=== PATIENT | female | born 1935 | race Caucasian/White ===

== ENCOUNTER 2017-08-24 12:45 | Emergency (ER) | payer MEDICARE, OTHER ==
[2017-08-24] MEDS ORDERED: ACETAMINOPHEN 325 MG TABLET PO ONE (13:36)
--- NOTE | 2017-08-24 13:46 | ER Document Report ---
ED General - General Chief Complaint: Fall Stated Complaint: FALL/HEAD INJURY, ANKLE PAIN Time Seen by Provider: 08/24/17 13:36 Mode of Arrival: Wheelchair Information source: Patient Notes: 81-year-old female history of dementia presents after twofold in 2 days. Family notes she twisted her ankle on the fall yesterday and they believe she twisted her ankle again today. Patient is on aspirin has history of osteoporosis and did strike her head yesterday. Family notes she is acting appropriately and was taken to primary care physician who evaluated her and did not believe patient had a bleed. Patient today had another fall was found laying on her back complaining of low back pain this time. No LOC noted. Family notes patient is acting appropriately again. She did not denies any chest pain shortness of breath abdominal pain or any other concerns TRAVEL OUTSIDE OF THE [place] IN LAST 30 DAYS: No - HPI Onset: Just prior to arrival Onset/Duration: Sudden Quality of pain: Achy Severity: Mild Pain Level: 1 Associated symptoms: Body/muscle aches Exacerbated by: Denies Relieved by: Denies Similar symptoms previously: Yes Recently seen / treated by doctor: Yes - Related Data Allergies/Adverse Reactions: TOBIN Inhibitors Allergy (Verified 08/24/17 12:47) Past Medical History - Social History Smoking Status: Never Smoker Cigarette use (# per day): No Chew tobacco use (# tins/day): No Smoking Education Provided: No Frequency of alcohol use: None Drug Abuse: None Family History: Reviewed & Not Pertinent Patient has suicidal ideation: No Patient has homicidal ideation: No - Past Medical History Cardiac Medical History: Reports: Hx Hypercholesterolemia, Hx Hypertension - not medicated Endocrine Medical History: Reports: Hx Diabetes Mellitus Type 2 Renal/ Medical History: Denies: Hx Peritoneal Dialysis Musculoskeltal Medical History: Reports Hx Arthritis - osteo Psychiatric Medical History: Reports: Hx Dementia Past Surgical History: Reports: Hx Cholecystectomy Review of Systems - Review of Systems Notes: REVIEW OF SYSTEMS: CONSTITUTIONAL : Denies fever, chills, or sweats. Denies recent illness. EENT: Denies eye, ear, throat, or mouth pain or symptoms. Denies nasal or sinus congestion or discharge. Denies throat, tongue, or mouth swelling or difficulty swallowing. Ms. dumont had CARDIOVASCULAR: Denies chest pain. Denies palpitations or racing or irregular heart beat. Denies ankle edema. RESPIRATORY: Denies cough, cold, or chest congestion. Denies shortness of breath, difficulty breathing, or wheezing. GASTROINTESTINAL: Denies abdominal pain or distention. Denies nausea, vomiting , or diarrhea. Denies blood in vomitus, stools, or per rectum. Denies black, tarry stools. Denies constipation. GENITOURINARY: Denies difficulty urinating, painful urination, burning, frequency, blood in urine, or discharge. FEMALE GENITOURINARY: Denies vaginal bleeding, heavy or abnormal periods, irregular periods. Denies vaginal discharge or odor. MUSCULOSKELETAL: Admits low back pain right ankle pain SKIN: Denies rash, lesions or sores. HEMATOLOGIC : Denies easy bruising or bleeding. LYMPHATIC: Denies swollen, enlarged glands. NEUROLOGICAL: Denies confusion or altered mental status. Denies passing out or loss of consciousness. Denies dizziness or lightheadedness. Denies headache. Denies weakness or paralysis or loss of use of either side. Denies problems with gait or speech. Denies sensory loss, numbness, or tingling. Denies seizures. PSYCHIATRIC: Denies anxiety or stress. Denies depression, suicidal ideation, or homicidal ideation. ALL OTHER SYSTEMS REVIEWED AND NEGATIVE. PHYSICAL EXAMINATION: GENERAL: Well-appearing, well-nourished and in no acute distress. HEAD: Atraumatic, normocephalic. EYES: Pupils equal round and reactive to light, extraocular movements intact, conjunctiva are normal. ENT: Nares patent, oropharynx clear without exudates. Moist mucous membranes. NECK: Normal range of motion, supple without lymphadenopathy LUNGS: Breath sounds clear to auscultation bilaterally and equal. No wheezes rales or rhonchi. HEART: Regular rate and rhythm without murmurs ABDOMEN: Soft, nontender, nondistended abdomen. No guarding, no rebound. No masses appreciated. Female : deferred Musculoskeletal: Normal range of motion, no pitting or edema. No cyanosis. Although ankle swelling on the right NEUROLOGICAL: Cranial nerves grossly intact. Normal speech, normal gait. Normal sensory, motor exams PSYCH: Normal mood, normal affect. SKIN: Warm, Dry, normal turgor, no rashes or lesions noted. Dictation was performed using [employer] voice recognition software Physical Exam - Vital signs Vitals: Temp Pulse Resp BP Pulse Ox 98.5 F 71 16 121/93 H 96 08/24/17 12:53 08/24/17 12:53 08/24/17 12:53 08/24/17 12:53 08/24/17 12:53 Course - Re-evaluation Re-evalutation: 08/24/17 14:05 Patient overall is acting appropriately and responding to questions, I do not believe she had a syncopal episode given the 2 presentations, I will order imaging as she otherwise looks well. 08/24/17 19:41 X-ray noted mild effusion of the ankle otherwise no acute fractures noted. Patient was washed in the emergency department had no other symptoms, I discussed with them a mechanical fall versus a syncopal episode, they are insistent that this is mechanical nature. Therefore I will discharge the patient home with close follow-up After performing a Medical Screening Examination, I estimate there is LOW risk for INTRACRANIAL HEMORRHAGE, UNSTABLE SPINE FRACTURE, CENTRAL CORD SYNDROME, CAUDA EQUINA, THORACIC AORTIC DISSECTION, PNEUMOTHORAX, PERFORATED BOWEL, RUPTURED ABDOMINAL AORTIC ANEURYSM, ACUTE TENDON RUPTURE, COMPARTMENT SYNDROME, or OPEN FRACTURE, thus I consider the discharge disposition reasonable. Also, there is no evidence or peritonitis, sepsis, or toxicity. I have reevaluated this patient multiple times and no significant life threatening changes are noted. The patient and I have discussed the diagnosis and risks, and we agree with discharging home to follow-up with their primary doctor with the understanding that symptoms and presentations can change. We also discussed returning to the Emergency Department immediately if new or worsening symptoms occur. We have discussed the symptoms which are most concerning (e.g., bloody stool, fever, changing or worsening pain, vomiting) that necessitate immediate return. - Vital Signs Vital signs: Temp Pulse Resp BP Pulse Ox 98.9 F 60 16 140/70 H 96 08/24/17 15:52 08/24/17 15:52 08/24/17 15:52 08/24/17 15:52 08/24/17 15:52 - Diagnostic Test Radiology reviewed: Image reviewed, Reports reviewed - Report given Discharge - Discharge Clinical Impression: Fall Qualifiers: Encounter type: initial encounter Qualified Code(s): W19.XXXA - Unspecified fall, initial encounter Ankle injury Qualifiers: Encounter type: initial encounter Laterality: right Qualified Code(s): S99.911A - Unspecified injury of right ankle, initial encounter Condition: Stable Disposition: HOME, SELF-CARE Instructions: Head Injury Precautions ([facility]), Sprained Ankle ([facility]) Additional Instructions: Follow up with your physician tomorrow for further care or return to the ED IMMEDIATELY if symptoms worsen or new concerns occur. If you cannot afford to follow up with your primary care physician a list of low cost clinics have been provided at the end of your discharge papers as well.
--- NOTE | 2017-08-24 15:15 | RADIOLOGY REPORT (SQ) ---
EXAM DESCRIPTION: CT HEAD WITHOUT COMPLETED DATE/TIME: 08/24/2017 3:04 pm REASON FOR STUDY: fall COMPARISON: April 2016 TECHNIQUE: Axial images acquired through the brain without intravenous contrast. Images reviewed wi th bone, brain and subdural windows. Images stored on PACS. All CT scanners at this facility use dose modulation, iterative reconstruction, and/or weight based d osing when appropriate to reduce radiation dose to as low as reasonably achievable (ALARA). [facility]: Dose Right [facility]: CareDose [facility]: Dose Right [facility]: Teradose 4D [facility]: [employer] RADIATION DOSE: CT Rad equipment meets quality standard of care and radiation dose reduction techniq ues were employed. CTDIvol: 64.6 mGy. DLP: 1163 mGy-cm. mGy. LIMITATIONS: None. FINDINGS: VENTRICLES: Prominent. CEREBRUM: No masses. No hemorrhage. No midline shift. Areas of low density in the white matter mos t likely due to chronic micro-vascular ischemic change. No evidence for acute infarction. CEREBELLUM: No masses. No hemorrhage. No alteration of density. No evidence for acute infarction. EXTRAAXIAL SPACES: Mild age-related involutional change. No fluid collections. No masses. ORBITS AND GLOBE: No intra- or extraconal masses. Normal contour of globe without masses. CALVARIUM: No fracture. PARANASAL SINUSES: No fluid or mucosal thickening. SOFT TISSUES: No mass or hematoma. OTHER: No other significant finding. IMPRESSION: MILD CHRONIC CHANGES OF ATROPHY AND MICROVASCULAR ISCHEMIA. NO ACUTE PROCESS. EVIDENCE OF ACUTE STROKE: NO. TECHNICAL DOCUMENTATION: JOB ID: [id number] Quality ID # [id number]: Final reports with documentation of one or more dose reduction techniques (e.g., Au tomated exposure control, adjustment of the mA and/or kV according to patient size, use of iterative reconstruction technique) 2010 [employer]- All Rights Reserved
--- NOTE | 2017-08-24 15:17 | RADIOLOGY REPORT (SQ) ---
EXAM DESCRIPTION: ANKLE RIGHT COMPLETE COMPLETED DATE/TIME: 08/24/2017 3:07 pm REASON FOR STUDY: fall COMPARISON: None. NUMBER OF VIEWS: Three views. TECHNIQUE: AP, lateral, and oblique radiographic images acquired of the right ankle. LIMITATIONS: None. FINDINGS: MINERALIZATION: Osteoporotic BONES: No acute displaced fracture. Mild plantar calcaneal bony spurring, mild bony spurring at the distal tip of the medial and lateral malleoli JOINTS: Small ankle joint effusion SOFT TISSUES: No soft tissue swelling. No foreign body. OTHER: No other significant finding. IMPRESSION: No acute fracture identified. Small ankle joint effusion TECHNICAL DOCUMENTATION: JOB ID: [id number] [employer]- All Rights Reserved
--- NOTE | 2017-08-24 15:20 | RADIOLOGY REPORT (SQ) ---
EXAM DESCRIPTION: CT CERVICAL SPINE WITHOUT COMPLETED DATE/TIME: 08/24/2017 3:04 pm REASON FOR STUDY: fall COMPARISON: None. TECHNIQUE: Axial images acquired through the cervical spine without intravenous contrast. Images re viewed with lung, soft tissue and bone windows. Reconstructed coronal and sagittal MPR images review ed. Images stored on PACS. All CT scanners at this facility use dose modulation, iterative reconstruction, and/or weight based d osing when appropriate to reduce radiation dose to as low as reasonably achievable (ALARA). [facility]: Dose Right [facility]: CareDose [facility]: Dose Right [facility]: Teradose 4D [facility]: [email or web address] RADIATION DOSE: CT Rad equipment meets quality standard of care and radiation dose reduction techniq ues were employed. CTDIvol: 11.7 mGy. DLP: 222 mGy-cm. mGy. LIMITATIONS: None. FINDINGS: ALIGNMENT: There is some loss of the normal cervical lordosis. There is minimal anterolis thesis of C 4 in relation to C5 MINERALIZATION: Normal. VERTEBRAL BODIES: No fractures or dislocation. DISCS: Multilevel disc space narrowing with osteophytes. FACETS, LATERAL MASSES, POSTERIOR ELEMENTS: Facet arthropathy. No fractures. No dislocation. No ac [place] findings. HARDWARE: None in the spine. VISUALIZED RIBS: No fractures. LUNG APICES AND SOFT TISSUES: No significant or acute findings. OTHER: No other significant finding. IMPRESSION: CHRONIC DEGENERATIVE CHANGES. NO ACUTE FINDINGS. TECHNICAL DOCUMENTATION: JOB ID: [id number] Quality ID # [id number]: Final reports with documentation of one or more dose reduction techniques (e.g., Au tomated exposure control, adjustment of the mA and/or kV according to patient size, use of iterative reconstruction technique) 2010 [employer]- All Rights Reserved
--- NOTE | 2017-08-24 15:25 | RADIOLOGY REPORT (SQ) ---
EXAM DESCRIPTION: CT LUMBAR SPINE WITHOUT COMPLETED DATE/TIME: 08/24/2017 3:04 pm REASON FOR STUDY: fall COMPARISON: None. TECHNIQUE: Axial images acquired through the lumbar spine without intravenous contrast. Images revie wed with lung, soft tissue and bone windows. Reconstructed coronal and sagittal MPR images reviewed. Images stored on PACS. All CT scanners at this facility use dose modulation, iterative reconstruction, and/or weight based d osing when appropriate to reduce radiation dose to as low as reasonably achievable (ALARA). [facility]: Dose Right [facility]: CareDose [facility]: Dose Right [facility]: Teradose 4D [facility]: [employer] RADIATION DOSE: mGy. LIMITATIONS: None. FINDINGS: SOFT TISSUES: No soft tissue swelling. No masses. SEGMENTATION: Normal. No transitional anatomy. ALIGNMENT: There is grade 1 anterolisthesis of L5 in relation to S1 and minimal anterolisthesis of L 3 in relation L4. There is a mild lumbar scoliosis convex to the right. VERTEBRAL BODIES: No fractures. No dislocation. No acute findings. DISCS: There is multilevel disc space reduction with associated osteophytic lipping PEDICLES, TRANSVERSE PROCESSES: No fractures. No dislocation. No acute findings. FACETS, POSTERIOR ELEMENTS: No fractures. No dislocation. Degenerative changes are identified in th e facet articulations at multiple levels HARDWARE: None in the spine. VISUALIZED RIBS: No fractures. OTHER: No other significant finding. IMPRESSION: DEGENERATIVE CHANGES IN THE LUMBAR SPINE WITHOUT ACUTE FRACTURE OR DISLOCATION. TECHNICAL DOCUMENTATION: JOB ID: [id number] Quality ID # [id number]: Final reports with documentation of one or more dose reduction techniques (e.g., Au tomated exposure control, adjustment of the mA and/or kV according to patient size, use of iterative reconstruction technique) 2010 [employer]- All Rights Reserved
[2017-08-24 15:54] VITALS: BP 140/70
== END 2017-08-24 15:54 | disposition home or self-care (01) ==
LOC: ER 12:45
DX: S99.911A Unspecified injury of right ankle, initial encounter (principal); S09.90XA Unspecified injury of head, initial encounter; M79.1 Myalgia; W18.30XA Fall on same level, unspecified, initial encounter; E78.00 Pure hypercholesterolemia, unspecified; I10 Essential (primary) hypertension; E11.9 Type 2 diabetes mellitus without complications; F03.90 Unspecified dementia, unspecified severity, without behavioral disturbance, psychotic disturbance, mood disturbance, and anxiety; Z90.49 Acquired absence of other specified parts of digestive tract
CPT/HCPCS: 99284; 73610; 70450; 72125; 72131; A9270

== ENCOUNTER 2017-11-25 12:47 | Observation (INO) | payer MEDICARE, OTHER ==
--- NOTE | 2017-11-25 13:10 | ER Document Report ---
ED General - General Chief Complaint: Syncope Stated Complaint: SYNCOPE Time Seen by Provider: 11/25/17 13:10 Notes: 82-year-old female patient to the emergency department after having a near syncopal episode at home. Patient had a large loose diarrhea-like stool. Family members state that they were helping her get cleaned up. They had her in the bathtub cleaning her. When she went to get out of the bathtub she was very weak. Daughter had to hold her up and she almost passed out. Did not fall or hit her head. Was very cool and clammy and at that time was also complaining of pain in her left arm and left side of her chest. No prior history of heart problems. Prediabetes as well as hypertension. EMS was called. When EMS got there her blood pressure was low. IV was established. Patient is with severe dementia as well TRAVEL OUTSIDE OF THE [place] IN LAST 30 DAYS: No - HPI Onset: Just prior to arrival Onset/Duration: Sudden - Related Data Allergies/Adverse Reactions: TOBIN Inhibitors Allergy (Verified 08/24/17 12:47) Past Medical History - General Information source: Relative - Social History Smoking Status: Never Smoker Chew tobacco use (# tins/day): No Frequency of alcohol use: None Drug Abuse: None Lives with: Family Family History: Reviewed & Not Pertinent Patient has suicidal ideation: No Patient has homicidal ideation: No - Past Medical History Cardiac Medical History: Reports: Hx Hypercholesterolemia, Hx Hypertension - not medicated Endocrine Medical History: Reports: Hx Diabetes Mellitus Type 2 Renal/ Medical History: Denies: Hx Peritoneal Dialysis Musculoskeltal Medical History: Reports Hx Arthritis - osteo Psychiatric Medical History: Reports: Hx Dementia Past Surgical History: Reports: Hx Cholecystectomy Review of Systems - Review of Systems Constitutional: Weakness. denies: Fever, Malaise EENT: denies: Eye pain, Difficulty swallowing, Mouth pain, Mouth swelling Cardiovascular: Chest pain, Syncope, Dizziness, Lightheaded. denies: Palpitations, Heart racing, Orthopnea Respiratory: denies: Cough, Hurts to breathe, Short of breath, Wheezing Gastrointestinal: Diarrhea, Nausea. denies: Abdominal pain, Vomiting Genitourinary: denies: Dysuria, Flank pain, Urgency Musculoskeletal: denies: Back pain, Joint pain, Joint swelling, Muscle pain, Leg swelling Skin: denies: Lesions, Lumps, Rash Hematologic/Lymphatic: denies: Blood clots, Easy bleeding, Easy bruising Neurological/Psychological: Confusion, Dementia, Weakness. denies: Depression, Paralysis, Numbness Physical Exam - Vital signs Vitals: Resp 17 11/25/17 12:58 Interpretation: Normal - General General appearance: Appears well, Alert - HEENT Head: Normocephalic, Atraumatic Eyes: Normal Pupils: PERRL - Respiratory Respiratory status: No respiratory distress Chest status: Nontender Breath sounds: Normal Chest palpation: Normal - Cardiovascular Rhythm: Regular Heart sounds: Normal auscultation Murmur: No - Abdominal Inspection: Normal Distension: No distension Bowel sounds: Normal Tenderness: Nontender Organomegaly: No organomegaly - Back Back: Normal, Nontender - Extremities General upper extremity: Normal inspection, Nontender, Normal color, Normal ROM , Normal temperature General lower extremity: Normal inspection, Nontender, Normal color, Normal ROM , Normal temperature, Normal weight bearing. No: Johanne's sign - Neurological Neuro grossly intact: Yes Cognition: Short term memory loss Sterling Coma Scale Eye Opening: Spontaneous Sterling Coma Scale Motor: Obeys Commands Speech: Normal Motor strength normal: LUE, RUE, LLE, RLE Sensory: Normal - Psychological Associated symptoms: Normal affect, Normal mood - Skin Skin Temperature: Warm Skin Moisture: Dry Skin Color: Normal Course - Re-evaluation Re-evalutation: 11/25/17 15:14 EKG and basic labs fairly unremarkable. Patient had a syncopal episode prior to arrival with slightly low blood pressure according to EMS. Blood pressure was 110/70 at the time of initial evaluation. I would like to have her admitted at least for observation due to the fact she had a syncopal episode and reportedly had some chest pain and left arm pain at this time. Will consult with hospitalist for admission at this time. - Vital Signs Vital signs: Temp Pulse Resp BP Pulse Ox 98.4 F 63 15 131/61 H 96 11/25/17 12:59 11/25/17 13:45 11/25/17 14:01 11/25/17 14:01 11/25/17 14:01 - Laboratory Result Diagrams: 11/25/17 13:46 11/25/17 13:46 Laboratory results interpreted by me: 11/25/17 11/25/17 11/25/17 13:46 13:46 14:22 WBC 13.5 H Hgb 10.3 L Hct 33.0 L MCV 75 L MCH 23.6 L MCHC 31.3 L RDW 18.9 H Seg Neutrophils % 87.6 H Lymphocytes % 6.1 L Absolute Neutrophils 11.8 H Chloride 109 H Creatine Kinase 28 L Total Protein 5.9 L Albumin 3.4 L Urine Protein 30 H - EKG Interpretation by Pa EKG shows normal: Sinus rhythm, [place], Intervals, QRS Complexes, ST-T Waves Discharge - Discharge Clinical Impression: Syncope and collapse Disposition: ADMITTED OBSERVATION Admitting Provider: Hospitalist [facility] Admitted: Telemetry
[2017-11-25 13:59] LABS: ABSOLUTE BASOPHILS # (AUTO) 0.1 10^3/uL (0.0-0.2); ABSOLUTE EOSINOPHILS # (AUTO) 0.1 10^3/uL (0.0-0.6); ABSOLUTE LYMPHOCYTES (AUTO) 0.8 10^3/uL (0.5-4.7); ABSOLUTE MONOCYTES (AUTO) 0.7 10^3/uL (0.1-1.4); ABSOLUTE NEUT (AUTO) 11.8 10^3/uL (1.7-8.2); BASOPHILS % (AUTO) 0.4 % (0-2); EOSINOPHILS % (AUTO) 0.8 % (0-6); HEMOGLOBIN 10.3 g/dL (12.0-15.5); LYMPHOCYTES % (AUTO) 6.1 % (13-45); MEAN CORPUSCULAR HEMOGLOBIN 23.6 pg (27.0-33.4); MEAN CORPUSCULAR HGB CONC 31.3 g/dL (32.0-36.0); MEAN CORPUSCULAR VOLUME 75 fl (80-97); MONOCYTES % (AUTO) 5.1 % (3-13); PLATELET COUNT 220 10^3/uL (150-450); RED BLOOD COUNT 4.38 10^6/uL (3.72-5.28); RED CELL DISTRIBUTION WIDTH 18.9 % (11.5-14.0); SEGMENTED NEUTROPHILS % (AUTO) 87.6 % (42-78); TOTAL CELLS COUNTED % (AUTO) 100 %; WHITE BLOOD COUNT 13.5 10^3/uL (4.0-10.5)
[2017-11-25 14:09] LABS: ALANINE AMINOTRANSFERASE 39 U/L (9-52); ALBUMIN 3.4 g/dL (3.5-5.0); ALKALINE PHOSPHATASE 80 U/L (38-126); ANION GAP 7 (5-19); ASPARTATE AMINO TRANSFERASE 23 U/L (14-36); BILIRUBIN,DIRECT 0.1 mg/dL (0.0-0.4); BILIRUBIN,TOTAL 0.2 mg/dL (0.2-1.3); BLOOD UREA NITROGEN 16 mg/dL (7-20); CALCIUM 8.9 mg/dL (8.4-10.2); CARBON DIOXIDE 29 mmol/L (22-30); CHLORIDE 109 mmol/L (98-107); CREATINE KINASE 28 U/L (30-135); GLUCOSE 105 mg/dL (75-110); POTASSIUM 4.3 mmol/L (3.6-5.0); SODIUM 144.7 mmol/L (137-145); TOTAL PROTEIN 5.9 g/dL (6.3-8.2)
[2017-11-25 14:21] LABS: CREATINE KINASE MB 0.54 ng/mL (<4.55); TROPONIN I < 0.012 ng/mL
[2017-11-25 14:37] LABS: AMORPHOUS SEDIMENT,URINE TRACE /HPF; APPEARANCE,URINE CLOUDY; BILIRUBIN,URINE NEGATIVE (NEGATIVE); COLOR,URINE YELLOW; GLUCOSE, URINE NEGATIVE (NEGATIVE); KETONES,URINE NEGATIVE (NEGATIVE); LEUKOCYTE ESTERASE,URINE NEGATIVE (NEGATIVE); NITRITE,URINE NEGATIVE (NEGATIVE); PROTEIN,URINE 30 mg/dL (NEGATIVE); URINE SPECIFIC GRAVITY 1.021; UROBILINOGEN,URINE NEGATIVE mg/dL (<2.0)
--- NOTE | 2017-11-25 15:33 | RADIOLOGY REPORT (SQ) ---
EXAM DESCRIPTION: CHEST SINGLE VIEW COMPLETED DATE/TIME: 11/25/2017 3:22 pm REASON FOR STUDY: syncope COMPARISON: 04/10/2016 EXAM PARAMETERS: NUMBER OF VIEWS: One view. TECHNIQUE: Single frontal radiographic view of the chest acquired. RADIATION DOSE: NA LIMITATIONS: None. FINDINGS: LUNGS AND PLEURA: No opacities, masses or pneumothorax. No pleural effusion. MEDIASTINUM AND HILAR STRUCTURES: No masses. Contour normal. HEART AND VASCULAR STRUCTURES: Heart stable in size. Normal vasculature. BONES: No acute findings. HARDWARE: None in the chest. OTHER: No other significant finding. IMPRESSION: NO ACUTE RADIOGRAPHIC FINDING IN THE CHEST. NO SIGNIFICANT CHANGE FROM PRIOR STUDY. TECHNICAL DOCUMENTATION: JOB ID: [id number] [employer]- All Rights Reserved Reading location - IP/workstation name: [email or web address]
[2017-11-25] MEDS ORDERED: ONDANSETRON HCL INJ/PF 4 MG/2 ML SDV IV PRN (16:00)
--- NOTE | 2017-11-25 16:30 | PDOC H&P ---
History of Present Illness Admission Date/PCP: 11/25/17 15:59 History of Present Illness: SCARLETT CHAUDHARI is a 82 year old female patient with advanced dementia and pituitary adenoma for which she has been on cabergoline for years. Because of her dementia and cognitive impairment brief history is obtained from the ER attending note and from her daughter is in the room During my encounter. Per her daughter patient has been in her usual baseline state of health up until this afternoon when she has large loose bowel movement and soiled herself. Family member states that they were helping her get cleaned up. The had her in the bath tub cleaning her. After cleaning patient has hard time to get out of the bathtub and had her daughter had to hold her up and the patient almost passed out. Patient did not fall or hit her head. Shows a very weak, cool and clammy. She complains of pain her on left scapula. When EMS arrived patient was found to be hypotensive with systolic of 70. Further detailed history and review of systems is unobtainable. Past Medical History Cardiac Medical History: Reports: Hyperlipidema, Hypertension - not medicated Endocrine Medical History: Reports: Diabetes Mellitus Type 2 Musculoskeltal Medical History: Reports: Arthritis - osteo Psychiatric Medical History: Reports: Dementia Past Surgical History Past Surgical History: Reports: Cholecystectomy Social History Lives with: Family Smoking Status: Never Smoker Family History Family History: Reviewed & Not Pertinent, DM Parental Family History Reviewed: Yes Children Family History Reviewed: Yes Sibling(s) Family History Reviewed.: Yes Medication/Allergy Home Medications: Aspirin [Adult Aspirin Regimen] 81 mg PO DAILY 11/25/17 Cabergoline [Cabergoline 0.5 mg Tablet] 1 tab PO Q3DAYS 11/25/17 Calcium Carbonate [Calcium] 600 mg PO DAILY 11/25/17 Losartan Potassium 25 mg PO DAILY 11/25/17 Mecobalamin [B-12] 2,000 mcg PO DAILY 11/25/17 Memantine HCl/Donepezil HCl [Namzaric 28 mg-10 mg Capsule] 1 each PO DAILY 11/25 Metformin HCl 500 mg PO DAILY 11/25/17 Quetiapine Fumarate [Seroquel] 50 mg PO DAILY 11/25/17 Allergies/Adverse Reactions: TOBIN Inhibitors Allergy (Verified 08/24/17 12:47) Review of Systems ROS unobtainable: Due to mental status Physical Exam Vital Signs: Temp Pulse Resp BP Pulse Ox 98.4 F 63 19 107/88 H 97 11/25/17 12:59 11/25/17 13:45 11/25/17 15:01 11/25/17 15:01 11/25/17 15:01 General appearance: PRESENT: no acute distress Head exam: PRESENT: atraumatic, normocephalic Eye exam: PRESENT: conjunctiva pink, EOMI, PERRLA. ABSENT: scleral icterus Respiratory exam: PRESENT: clear to auscultation maren. ABSENT: rales, rhonchi, wheezes Cardiovascular exam: PRESENT: RRR. ABSENT: diastolic murmur, rubs, systolic murmur Neurological exam: PRESENT: alert, awake, other - No neurologic deficit Results Impressions: Chest X-Ray 11/25/17 15:14 IMPRESSION: NO ACUTE RADIOGRAPHIC FINDING IN THE CHEST. NO SIGNIFICANT CHANGE FROM PRIOR STUDY. Assessment & Plan - Diagnosis (1) Near syncope Is this a current diagnosis for this admission?: Yes Plan: Patient will be admitted for observation to rule out TIA or stroke. We will do MRI of the brain next morning (2) Chest pain Qualifiers: Chest pain type: other chest pain Qualified Code(s): R07.89 - Other chest pain; R07.8 - Other chest pain Is this a current diagnosis for this admission?: Yes Plan: Chest pain is typical there is no EKG changes. Her troponins are negative (3) Hypertension Qualifiers: Hypertension type: essential hypertension Qualified Code(s): I10 - Essential (primary) hypertension Is this a current diagnosis for this admission?: Yes (4) Pituitary adenoma Is this a current diagnosis for this admission?: Yes Plan: Continue her home medication. (5) TIA (transient ischemic attack) Is this a current diagnosis for this admission?: Yes Plan: Patient is clinically stable except the near-syncope. Upon examination she does not have any lateralizing signs or neurologic deficits. We will admit the patient for observation. - Time Critical Time spent with patient: 25-34 minutes
[2017-11-25] MEDS ORDERED: LANSOPRAZOLE 30 MG TAB.RAP.DR PO ONE (17:00)
[2017-11-25] MEDS ORDERED: ASPIRIN 325 MG TABLET, ENT COATED PO ONE (17:00)
--- NOTE | 2017-11-25 17:23 | RADIOLOGY REPORT (SQ) ---
EXAM DESCRIPTION: CT HEAD WITHOUT COMPLETED DATE/TIME: 11/25/2017 4:50 pm REASON FOR STUDY: syncpe, hxof adenoma COMPARISON: None. TECHNIQUE: Axial images acquired through the brain without intravenous contrast. Images reviewed wi th bone, brain and subdural windows. Additional sagittal and coronal reconstructions were generated. Images stored on PACS. All CT scanners at this facility use dose modulation, iterative reconstruction, and/or weight based d osing when appropriate to reduce radiation dose to as low as reasonably achievable (ALARA). [facility]: Dose Right [facility]: CareDose [facility]: Dose Right [facility]: Teradose 4D [facility]: [place] RADIATION DOSE: CT Rad equipment meets quality standard of care and radiation dose reduction techniq ues were employed. CTDIvol: 53.2 mGy. DLP: 1044 mGy-cm. mGy. LIMITATIONS: None. FINDINGS: VENTRICLES: Prominent. CEREBRUM: No masses. No hemorrhage. No midline shift. Areas of low density in the white matter mos t likely due to chronic micro-vascular ischemic change. No evidence for acute infarction. CEREBELLUM: No masses. No hemorrhage. No alteration of density. No evidence for acute infarction. EXTRAAXIAL SPACES: Mild age-related involutional change. No fluid collections. No masses. ORBITS AND GLOBE: No intra- or extraconal masses. Normal contour of globe without masses. CALVARIUM: No fracture. PARANASAL SINUSES: No fluid or mucosal thickening. SOFT TISSUES: No mass or hematoma. OTHER: No other significant finding. IMPRESSION: MILD CHRONIC CHANGES OF ATROPHY AND MICROVASCULAR ISCHEMIA. NO ACUTE PROCESS. EVIDENCE OF ACUTE STROKE: NO. TECHNICAL DOCUMENTATION: JOB ID: [id number] Quality ID # [id number]: Final reports with documentation of one or more dose reduction techniques (e.g., Au tomated exposure control, adjustment of the mA and/or kV according to patient size, use of iterative reconstruction technique) 2010 [employer]- All Rights Reserved Reading location - IP/workstation name: [email or web address]
[2017-11-25] MEDS ORDERED: ZOLEDRONIC ACID 5 MG/100 ML BOTTLE IV PRN (18:13)
--- NOTE | 2017-11-25 18:16 | RADIOLOGY REPORT (SQ) ---
EXAM DESCRIPTION: MRI HEAD WITHOUT COMPLETED DATE/TIME: 11/25/2017 6:06 pm REASON FOR STUDY: Rule out stroke COMPARISON: None. TECHNIQUE: Multiplanar imaging includes non-contrasted T1, T2, FLAIR, and diffusion with ADC map seq uences. Images stored on PACS. LIMITATIONS: At least some degree of motion artifact on many of the sequences. FINDINGS: ANATOMY: No anomalies. Normal vascular flow voids. Pituitary fossa normal. CSF SPACES: Atrophy induced prominence of ventricles and CSF spaces. CEREBRUM: High signal intensity lesions scattered throughout the white matter on FLAIR imaging with d istribution suggesting micro-vascular ischemic changes. No evidence of hemorrhage, mass, or extraaxi al fluid collection. POSTERIOR FOSSA: No signal alteration. No hemorrhage. No edema, masses or mass effect. Internal joy tory canals, cerebello-pontine angles, mastoids normal. DIFFUSION IMAGING: Negative for acute or sub-acute infarction. ORBITS: No masses. Globes normal. PARANASAL SINUSES: No fluid levels. Mucosa normal. OTHER: No other significant finding. IMPRESSION: ATROPHY AND CHRONIC MICRO-VASCULAR ISCHEMIC CHANGES. OTHERWISE NORMAL MRI OF THE BRAIN W ITHOUT INTRAVENOUS GADOLINIUM CONTRAST. EVIDENCE OF ACUTE STROKE: NO. TECHNICAL DOCUMENTATION: JOB ID: [id number] [employer]- All Rights Reserved Reading location - IP/workstation name: [email or web address]
[2017-11-25] MEDS ORDERED: ATORVASTATIN CALCIUM 40 MG TABLET PO SCH (22:00)
[2017-11-25] MEDS ORDERED: QUETIAPINE FUMARATE 100 MG TABLET PO SCH (22:00)
[2017-11-26 05:53] LABS: ABSOLUTE EOSINOPHILS # (AUTO) 0.3 10^3/uL (0.0-0.6); ABSOLUTE LYMPHOCYTES (AUTO) 1.7 10^3/uL (0.5-4.7); ABSOLUTE MONOCYTES (AUTO) 0.7 10^3/uL (0.1-1.4); ABSOLUTE NEUT (AUTO) 5.2 10^3/uL (1.7-8.2); BASOPHILS % (AUTO) 0.6 % (0-2); EOSINOPHILS % (AUTO) 3.8 % (0-6); HEMATOCRIT 31.8 % (36.0-47.0); HEMOGLOBIN 10.2 g/dL (12.0-15.5); LYMPHOCYTES % (AUTO) 21.4 % (13-45); MEAN CORPUSCULAR HEMOGLOBIN 23.9 pg (27.0-33.4); MEAN CORPUSCULAR VOLUME 75 fl (80-97); PLATELET COUNT 205 10^3/uL (150-450); RED BLOOD COUNT 4.26 10^6/uL (3.72-5.28); RED CELL DISTRIBUTION WIDTH 19.3 % (11.5-14.0); SEGMENTED NEUTROPHILS % (AUTO) 65.2 % (42-78); TOTAL CELLS COUNTED % (AUTO) 100 %
[2017-11-26] MEDS ORDERED: LANSOPRAZOLE 30 MG TAB.RAP.DR PO SCH (06:00)
[2017-11-26 06:19] LABS: ALANINE AMINOTRANSFERASE 35 U/L (9-52); ALBUMIN 3.3 g/dL (3.5-5.0); ALKALINE PHOSPHATASE 85 U/L (38-126); ANION GAP 8 (5-19); ASPARTATE AMINO TRANSFERASE 22 U/L (14-36); BILIRUBIN,DIRECT 0.2 mg/dL (0.0-0.4); BILIRUBIN,TOTAL 0.2 mg/dL (0.2-1.3); BLOOD UREA NITROGEN 15 mg/dL (7-20); CALCIUM 8.8 mg/dL (8.4-10.2); CARBON DIOXIDE 28 mmol/L (22-30); CHLORIDE 110 mmol/L (98-107); GLUCOSE 77 mg/dL (75-110); POTASSIUM 3.8 mmol/L (3.6-5.0); TOTAL PROTEIN 5.9 g/dL (6.3-8.2)
[2017-11-26 07:47] VITALS: BP 122/60
[2017-11-26] MEDS ORDERED: CALCIUM CARBONATE 250 MG/VITAMIN D3 125 UNIT TABLET PO SCH (08:00)
[2017-11-26] MEDS ORDERED: [UNRECOGNIZED DRUG - OTHER] PO SCH (08:00)
[2017-11-26] MEDS ORDERED: METFORMIN HCL 500 MG TABLET PO SCH (08:00)
[2017-11-26] MEDS ORDERED: CALCIUM CARBONATE PO SCH (08:00)
[2017-11-26] MEDS ORDERED: VITAMIN D3 PO SCH (08:00)
--- NOTE | 2017-11-26 09:43 | EKG REPORT ---
SEVERITY:- ABNORMAL ECG - SINUS RHYTHM NONSPECIFIC INTRAVENTRICULAR CONDUCTION DELAY : Confirmed by: Ha Tovar 26-Nov-2017 09:43:15
[2017-11-26] MEDS ORDERED: ENOXAPARIN SODIUM INJ 30 MG/0.3 ML DISP.SYRIN SUBCUT SCH (10:00)
[2017-11-26] MEDS ORDERED: ASPIRIN 325 MG TABLET, ENT COATED PO SCH (10:00)
--- NOTE | 2017-11-26 12:13 | PDOC DISCHARGE SUMMARY ---
General - Admit/Disc Date/PCP Admission Date/Primary Care Provider: 11/25/17 15:59 Discharge Date: 11/26/17 - Discharge Diagnosis (1) Near syncope Is this a current diagnosis for this admission?: Yes (2) Chest pain Is this a current diagnosis for this admission?: Yes (3) Hypertension Is this a current diagnosis for this admission?: Yes (4) Pituitary adenoma Is this a current diagnosis for this admission?: Yes (5) TIA (transient ischemic attack) Is this a current diagnosis for this admission?: Yes - Additional Information Resuscitation Status: Full Code Discharge Diet: Diabetic Discharge Activity: Activity As Tolerated, Balance Activity w/Rest Home Medications: Aspirin [Adult Aspirin Regimen] 81 mg PO WSUPPER 11/25/17 Cabergoline [Cabergoline 0.5 mg Tablet] 1 tab PO TUFR@1800 11/25/17 Calcium Carbonate/Vitamin D3 [Calcium 600 + Vit D 400 Softgl] 1 cap PO BIDBS Cyanocobalamin (Vitamin B-12) [Vitamin B-12 1000 mcg Tablet] 2,000 mcg PO WSUPPER 11/25/17 Losartan Potassium 25 mg PO WSUPPER 11/25/17 Memantine HCl/Donepezil HCl [Namzaric 28 mg-10 mg Capsule] 1 cap PO WSUPPER Metformin HCl [Metformin HCl ER] 500 mg PO WSUPPER 11/25/17 Quetiapine Fumarate [Seroquel] 50 mg PO BIDBS 11/25/17 Zoledronic Acid/Mannitol-Water [Reclast 5 mg/100 ml Solution] 5 mg IV ASDIR PRN 11/25/17 History of Present Illness History of Present Illness: SCARLETT CHAUDHARI is a 82 year old female patient with advanced dementia and pituitary adenoma for which she has been on cabergoline for years. Because of her dementia and cognitive impairment brief history is obtained from the ER attending note and from her daughter is in the room During my encounter. Per her daughter patient has been in her usual baseline state of health up until this afternoon when she has large loose bowel movement and soiled herself. Family member states that they were helping her get cleaned up. The daughter had her in the bath tub cleaning her. After cleaning patient has hard time to get out of the bathtub. Her daughter had to hold her up and the patient almost passed out. Patient did not fall or hit her head. She was very weak, cool and clammy. She complains of pain her on left scapula. When EMS arrived patient was found to be hypotensive with systolic of 70. Further detailed history and review of systems is unobtainable. Hospital Course Hospital Course: Patient admitted for observation and she was worked up for stroke versus TIA versus near syncope. Her CT head and MRI of the brain are unremarkable. Patient remained symptom-free throughout her stay and currently she is at her baseline. Her vital signs are within normal limits and patient is stable to be discharged today. Physical Exam Vital Signs: Temp Pulse Resp BP Pulse Ox 98.7 F 74 18 122/60 97 11/26/17 10:05 11/26/17 10:05 11/26/17 10:05 11/26/17 08:00 11/26/17 10:05 Intake & Output 11/25/17 11/26/17 11/27/17 06:59 06:59 06:59 Intake Total 515 Balance 515 Weight 64.2 kg General appearance: PRESENT: no acute distress, well-developed, well-nourished Head exam: PRESENT: atraumatic, normocephalic Respiratory exam: PRESENT: clear to auscultation maren. ABSENT: rales, rhonchi, wheezes Cardiovascular exam: PRESENT: RRR. ABSENT: diastolic murmur, rubs, systolic murmur Results Laboratory Results: 11/26/17 05:03 11/26/17 05:03 11/26/17 11/26/17 05:03 05:03 WBC 8.0 RBC 4.26 Hgb 10.2 L Hct 31.8 L MCV 75 L MCH 23.9 L MCHC 32.0 RDW 19.3 H Plt Count 205 Seg Neutrophils % 65.2 Lymphocytes % 21.4 Monocytes % 9.0 Eosinophils % 3.8 Basophils % 0.6 Absolute Neutrophils 5.2 Absolute Lymphocytes 1.7 Absolute Monocytes 0.7 Absolute Eosinophils 0.3 Absolute Basophils 0.0 Sodium 146.0 H Potassium 3.8 Chloride 110 H Carbon Dioxide 28 Anion Gap 8 BUN 15 Creatinine 0.55 Est GFR ( Amer) > 60 Est GFR (Non-Af Amer) > 60 Glucose 77 Calcium 8.8 Total Bilirubin 0.2 AST 22 ALT 35 Alkaline Phosphatase 85 Total Protein 5.9 L Albumin 3.3 L 11/25/17 18:20 Troponin I < 0.012 Impressions: Chest X-Ray 11/25/17 15:14 IMPRESSION: NO ACUTE RADIOGRAPHIC FINDING IN THE CHEST. NO SIGNIFICANT CHANGE FROM PRIOR STUDY. Head CT 11/25/17 15:55 IMPRESSION: MILD CHRONIC CHANGES OF ATROPHY AND MICROVASCULAR ISCHEMIA. NO ACUTE PROCESS. EVIDENCE OF ACUTE STROKE: NO. Head MRI 11/25/17 16:04 IMPRESSION: ATROPHY AND CHRONIC MICRO-VASCULAR ISCHEMIC CHANGES. OTHERWISE NORMAL MRI OF THE BRAIN WITHOUT INTRAVENOUS GADOLINIUM CONTRAST. EVIDENCE OF ACUTE STROKE: NO. Qualifiers - * PATEINT BEING DISCHARGED WITH ANY OF THE FOLLOWING DIAGNOSIS?: No
[2017-11-26] MEDS ORDERED: LOSARTAN POTASSIUM 25 MG TABLET PO SCH (17:00)
[2017-11-26] MEDS ORDERED: (PENDING PHARMACY ID) (Metformin Hcl [Metformin Hcl Er] 500 MG) PO SCH (17:00)
[2017-11-26] MEDS ORDERED: (PENDING PHARMACY ID) (Memantine Hcl/Donepezil Hcl [Namzaric 28 Mg-10 Mg Capsule] 1 CAP) PO SCH (17:00)
[2017-11-26] MEDS ORDERED: CYANOCOBALAMIN (VITAMIN B-12) 1,000 MCG TABLET PO SCH (17:00)
[2017-11-26] MEDS ORDERED: ASPIRIN 81 MG TABLET, ENT COATED PO SCH (17:00)
[2017-11-28] MEDS ORDERED: CABERGOLINE PO SCH (18:00)
== END 2017-11-26 10:42 | disposition home or self-care (01) ==
LOC: ER 12:47 → EH 15:59 → 3W 18:06
PROVIDERS: ADMIT Emergency Medicine; ATTEND Emergency Medicine
DX: R55 Syncope and collapse (principal); R07.89 Other chest pain; I10 Essential (primary) hypertension; D35.2 Benign neoplasm of pituitary gland; G45.9 Transient cerebral ischemic attack, unspecified; F03.90 Unspecified dementia, unspecified severity, without behavioral disturbance, psychotic disturbance, mood disturbance, and anxiety; M25.512 Pain in left shoulder; E11.9 Type 2 diabetes mellitus without complications; M79.602 Pain in left arm; R19.7 Diarrhea, unspecified; Z90.49 Acquired absence of other specified parts of digestive tract; Z79.82 Long term (current) use of aspirin; Z79.899 Other long term (current) drug therapy; Z79.84 Long term (current) use of oral hypoglycemic drugs
CPT/HCPCS: 93005; 99285; 36415 ×2; 82553; 82550; 85025 ×2; 80053 ×2; 81001; 84484; 70551; 71045; 70450; 93010; G0378 ×3; A9270 ×5; J3490 ×2

== ENCOUNTER 2017-12-06 10:27 | Observation (INO) | payer MEDICARE, OTHER ==
--- NOTE | 2017-12-06 10:34 | ER Document Report ---
ED General - General Stated Complaint: WEAKNESS Time Seen by Provider: 12/06/17 10:33 Mode of Arrival: Medic Information source: Patient, Relative, Emergency Med Personnel, [facility] Records TRAVEL OUTSIDE OF THE [place] IN LAST 30 DAYS: No - HPI Notes: 82-year-old female with past medical history of dementia, hypertension prediabetes iron deficiency anemia presents to the emergency room via EMS for altered mental status approximately 40 minutes ago. Granddaughter states that she was sitting and watching TV while eating breakfast, all of a sudden she noticed she became diaphoretic with labored breathing and was drooling while sitting up for approximately 45 minutes. Patient still had a pulse. Patient was seen on November 25 for a syncopal event. Daughter states that she was in the bathroom, when the daughter came in she noted feces on her, daughter states her and while she was picking her up she became unresponsive. Patient was then brought to the emergency room and had a fall stroke workup. Patient had an MRI which was unremarkable. Patient speculated to have a TIA. Patient seen at primary care office 6 days ago, [facility] patient. Daughter denies any medications, color food. Patient was not postictal after she became unresponsive. No medications were given. Patient's blood sugar edema vitals were stable. Patient is alert and responsive when EMS came to the house. - Related Data Allergies/Adverse Reactions: TOBIN Inhibitors Allergy (Verified 08/24/17 12:47) Past Medical History - General Information source: Patient - Social History Smoking Status: Never Smoker Family History: Reviewed & Not Pertinent, DM - Past Medical History Cardiac Medical History: Reports: Hx Hypercholesterolemia, Hx Hypertension - not medicated Endocrine Medical History: Reports: Hx Diabetes Mellitus Type 2 Renal/ Medical History: Denies: Hx Peritoneal Dialysis Musculoskeltal Medical History: Reports Hx Arthritis - osteo Psychiatric Medical History: Reports: Hx Dementia Denies: Hx Depression Past Surgical History: Reports: Hx Cholecystectomy Review of Systems - Review of Systems Constitutional: See HPI EENT: No symptoms reported Cardiovascular: No symptoms reported Respiratory: No symptoms reported Gastrointestinal: No symptoms reported Genitourinary: No symptoms reported Female Genitourinary: No symptoms reported Musculoskeletal: See HPI Skin: No symptoms reported Hematologic/Lymphatic: No symptoms reported Neurological/Psychological: No symptoms reported Physical Exam - Vital signs Vitals: Temp Pulse Resp BP Pulse Ox 97.3 F 71 18 111/51 L 96 12/06/17 10:38 12/06/17 10:38 12/06/17 10:38 12/06/17 10:38 12/06/17 10:38 - Notes Notes: PHYSICAL EXAMINATION: GENERAL: Well-appearing, well-nourished and in no acute distress. HEAD: Atraumatic, normocephalic. EYES: Pupils equal round and reactive to light, extraocular movements intact, conjunctiva are normal. ENT: Nares patent, oropharynx clear without exudates. Moist mucous membranes. NECK: Normal range of motion, supple without lymphadenopathy LUNGS: Breath sounds clear to auscultation bilaterally and equal. No wheezes rales or rhonchi. HEART: Regular rate and rhythm without murmurs ABDOMEN: Soft, nontender, nondistended abdomen. No guarding, no rebound. No masses appreciated. Female : deferred Musculoskeletal: Normal range of motion, no pitting or edema. No cyanosis. NEUROLOGICAL: Memory loss. normal speech, Normal sensory, motor exams PSYCH: Normal mood, normal affect. SKIN: Warm, Dry, normal turgor, no rashes or lesions noted. Course - Re-evaluation Re-evalutation: 12/06/17 17:30 10-year-old female presents with family for evaluation of altered mental status. Daughter states that patient has syncopal episode after she took her out of the bath a week ago she defecated on herself. Patient has a history of severe dementia, she was then brought to the ER for evaluation. Stroke workup was done, all unremarkable for any acute findings. Patient was observed and discharged home. Patient had follow-up with her primary care provider when he reviewed her lab work. It is likely that patient sustained a UTI from her initial altered mental status event due to being covered in fecal matter. Patient has a leukocytosis of 13.9 with a left shift, as well as hematuria and proteinuria. CMP negative for any hepatic or renal dysfunction. No electrolyte disturbances. CT head negative as well as chest x-ray negative for any acute findings per radiology. Cardiac enzymes negative, EKG negative for acute STEMI. On reevaluation patient remains afebrile, vitals stable and she is in no distress. Discussed with daughter she has urosepsis with possible encephalopathy. Patient given empiric broad-spectrum antibiotics vancomycin and Zosyn. Discussed patient to be admitted for IV antibiotics and further evaluation. Discussed with Dr. Urbano Obrien, hospitalist, for admission of urosepsis. Patient given empiric antibiotics vancomycin and Zosyn. All questions and concerns answered by this provider parents and patient patient and daughter agree with plan of care of admission. - Vital Signs Vital signs: Temp Pulse Resp BP Pulse Ox 97.3 F 71 17 123/66 98 12/06/17 10:38 12/06/17 10:38 12/06/17 13:01 12/06/17 13:01 12/06/17 13:01 - Laboratory Result Diagrams: 12/06/17 11:42 12/06/17 11:42 Laboratory results interpreted by me: 12/06/17 12/06/17 12/06/17 11:33 11:42 11:42 WBC 13.9 H Hgb 11.5 L Hct 35.9 L MCV 76 L MCH 24.5 L RDW 19.9 H Seg Neutrophils % 88.0 H Lymphocytes % 5.5 L Absolute Neutrophils 12.2 H Sodium 148.1 H Glucose 123 H Magnesium 2.5 H Creatine Kinase 24 L Urine Protein 100 H Urine Blood MODERATE H Urine Nitrite POSITIVE H Ur Leukocyte Esterase LARGE H Discharge - Discharge Clinical Impression: Urosepsis, Pyelonephritis Leukocytosis Qualifiers: Leukocytosis type: bandemia Qualified Code(s): D72.825 - Bandemia Condition: Good Disposition: ADMITTED INPATIENT Admitting Provider: Hospitalist - Dr. Urbano Obrien Unit Admitted: Medical Floor
[2017-12-06] MEDS ORDERED: NORMAL SALINE 1000 ML 1,000 ML IV ONE (10:49)
--- NOTE | 2017-12-06 11:53 | RADIOLOGY REPORT (SQ) ---
EXAM DESCRIPTION: CHEST SINGLE VIEW COMPLETED DATE/TIME: 12/06/2017 11:11 am REASON FOR STUDY: sudden onset AMS COMPARISON: Chest films 11/25/2017, 04/10/2016 EXAM PARAMETERS: NUMBER OF VIEWS: One view. TECHNIQUE: Single frontal radiographic view of the chest acquired. RADIATION DOSE: NA LIMITATIONS: None. FINDINGS: LUNGS AND PLEURA: No opacities, masses or pneumothorax. No pleural effusion. MEDIASTINUM AND HILAR STRUCTURES: No masses. Contour normal. HEART AND VASCULAR STRUCTURES: Heart normal in size. Normal vasculature. BONES: No acute findings. HARDWARE: None in the chest. OTHER: No other significant finding. IMPRESSION: NO ACUTE RADIOGRAPHIC FINDING IN THE CHEST. TECHNICAL DOCUMENTATION: JOB ID: [id number] [employer]- All Rights Reserved Reading location - IP/workstation name: [email or web address]
[2017-12-06 11:55] LABS: ABSOLUTE BASOPHILS # (AUTO) 0.1 10^3/uL (0.0-0.2); ABSOLUTE EOSINOPHILS # (AUTO) 0.1 10^3/uL (0.0-0.6); ABSOLUTE LYMPHOCYTES (AUTO) 0.8 10^3/uL (0.5-4.7); ABSOLUTE MONOCYTES (AUTO) 0.7 10^3/uL (0.1-1.4); ABSOLUTE NEUT (AUTO) 12.2 10^3/uL (1.7-8.2); BASOPHILS % (AUTO) 0.5 % (0-2); EOSINOPHILS % (AUTO) 0.7 % (0-6); HEMATOCRIT 35.9 % (36.0-47.0); HEMOGLOBIN 11.5 g/dL (12.0-15.5); LYMPHOCYTES % (AUTO) 5.5 % (13-45); MEAN CORPUSCULAR HEMOGLOBIN 24.5 pg (27.0-33.4); MEAN CORPUSCULAR HGB CONC 32.1 g/dL (32.0-36.0); MEAN CORPUSCULAR VOLUME 76 fl (80-97); MONOCYTES % (AUTO) 5.3 % (3-13); PLATELET COUNT 244 10^3/uL (150-450); RED CELL DISTRIBUTION WIDTH 19.9 % (11.5-14.0); TOTAL CELLS COUNTED % (AUTO) 100 %; WHITE BLOOD COUNT 13.9 10^3/uL (4.0-10.5)
[2017-12-06 11:57] LABS: INTERNATIONAL RATION (INR) 1.08; PROTHROMBIN TIME 14.5 SEC (11.4-15.4)
[2017-12-06 11:58] LABS: PARTIAL THROMBOPLASTIN TIME 28.1 SEC (23.5-35.8)
[2017-12-06 12:05] LABS: APPEARANCE,URINE TURBID; BILIRUBIN,URINE NEGATIVE (NEGATIVE); COLOR,URINE YELLOW; GLUCOSE, URINE NEGATIVE (NEGATIVE); KETONES,URINE NEGATIVE (NEGATIVE); LEUKOCYTE ESTERASE,URINE LARGE (NEGATIVE); NITRITE,URINE POSITIVE (NEGATIVE); PROTEIN,URINE 100 mg/dL (NEGATIVE); URINE SPECIFIC GRAVITY 1.014; UROBILINOGEN,URINE NEGATIVE mg/dL (<2.0)
[2017-12-06 12:26] LABS: ALANINE AMINOTRANSFERASE 24 U/L (9-52); ALKALINE PHOSPHATASE 83 U/L (38-126); ANION GAP 15 (5-19); ASPARTATE AMINO TRANSFERASE 19 U/L (14-36); BILIRUBIN,DIRECT 0.2 mg/dL (0.0-0.4); BILIRUBIN,TOTAL 0.3 mg/dL (0.2-1.3); BLOOD UREA NITROGEN 20 mg/dL (7-20); CALCIUM 9.3 mg/dL (8.4-10.2); CARBON DIOXIDE 27 mmol/L (22-30); CHLORIDE 106 mmol/L (98-107); CREATINE KINASE 24 U/L (30-135); GLUCOSE 123 mg/dL (75-110); POTASSIUM 4.2 mmol/L (3.6-5.0); SODIUM 148.1 mmol/L (137-145); TOTAL PROTEIN 6.9 g/dL (6.3-8.2)
[2017-12-06 12:37] LABS: CREATINE KINASE MB 0.43 ng/mL (<4.55)
[2017-12-06 12:41] LABS: TROPONIN I < 0.012 ng/mL
--- NOTE | 2017-12-06 12:45 | RADIOLOGY REPORT (SQ) ---
EXAM DESCRIPTION: CT HEAD WITHOUT COMPLETED DATE/TIME: 12/06/2017 12:15 pm REASON FOR STUDY: sudden onset AMS COMPARISON: MRI brain 11/25/2017 CT brain 11/25/2017, 04/10/2016 TECHNIQUE: Axial images acquired through the brain without intravenous contrast. Images reviewed wi th bone, brain and subdural windows. Additional sagittal and coronal reconstructions were generated. Images stored on PACS. All CT scanners at this facility use dose modulation, iterative reconstruction, and/or weight based d osing when appropriate to reduce radiation dose to as low as reasonably achievable (ALARA). [facility]: Dose Right [facility]: CareDose [facility]: Dose Right [facility]: Teradose 4D [facility]: [place] RADIATION DOSE: CT Rad equipment meets quality standard of care and radiation dose reduction techniq ues were employed. CTDIvol: 53.2 mGy. DLP: 991 mGy-cm. mGy. LIMITATIONS: None. FINDINGS: VENTRICLES: Prominent. CEREBRUM: No masses. No hemorrhage. No midline shift. Areas of low density in the white matter mos t likely due to chronic micro-vascular ischemic change. No evidence for acute infarction. CEREBELLUM: No masses. No hemorrhage. No alteration of density. No evidence for acute infarction. EXTRAAXIAL SPACES: Mild age-related involutional change. No fluid collections. No masses. ORBITS AND GLOBE: No intra- or extraconal masses. Normal contour of globes post cataract surgery maren aterally. CALVARIUM: No fracture. PARANASAL SINUSES: Fluid in the dependent portion right sphenoid sinus SOFT TISSUES: No mass or hematoma. OTHER: Bulky bony spurring from arthritis along the articulation of the right lateral masses of C1 an d C2, stable IMPRESSION: MILD CHRONIC CHANGES OF ATROPHY AND MICROVASCULAR ISCHEMIA. NO ACUTE PROCESS. EVIDENCE OF ACUTE STROKE: No TECHNICAL DOCUMENTATION: JOB ID: [id number] Quality ID # [id number]: Final reports with documentation of one or more dose reduction techniques (e.g., Au tomated exposure control, adjustment of the mA and/or kV according to patient size, use of iterative reconstruction technique) 2010 [employer]- All Rights Reserved Reading location - IP/workstation name: [email or web address]
[2017-12-06] MEDS ORDERED: VANCOMYCIN HCL INJ 1000 MG VIAL IV ONE (13:51)
[2017-12-06] MEDS ORDERED: PIPERACILLIN/TAZOBACTAM 3.375 GM VIAL IV ONE (13:51)
--- NOTE | 2017-12-06 16:09 | PDOC H&P ---
History of Present Illness Admission Date/PCP: 12/06/17 14:34 Patient complains of: Altered mental status History of Present Illness: SCARLETT CHAUDHARI is a 82 year old female with Alzheimer's dementia with recent admission to this hospital for altered mental status. She had workup at that time also included head CT and MRI that were negative for significant lesion she was diagnosed with TIA. Patient lives at home with her daughter. She now presents with symptoms of confusion and either syncope or near syncope. She denies fever or chills, she has not had cough, denies dysuria, no urinary frequency. Evaluation in the ED significant for pyuria and leukocytosis with white count 13.9. Head CT negative for acute process. Patient was treated with Zosyn and IV fluid and referred for admission to hospitalist service for further evaluation and management. Past Medical History Cardiac Medical History: Reports: Hyperlipidema, Hypertension - not medicated Endocrine Medical History: Reports: Diabetes Mellitus Type 2 Musculoskeltal Medical History: Reports: Arthritis - osteo Psychiatric Medical History: Reports: Dementia Denies: Depression Past Surgical History Past Surgical History: Reports: Cholecystectomy Social History Smoking Status: Never Smoker Frequency of Alcohol Use: None Hx Recreational Drug Use: No Drugs: None Hx Prescription Drug Abuse: No Family History Family History: Reviewed & Not Pertinent, DM Parental Family History Reviewed: Yes Children Family History Reviewed: Yes Sibling(s) Family History Reviewed.: Yes Medication/Allergy Home Medications: Aspirin [Aspirin 81 mg Chewable Tablet] 81 mg PO WSUPPER 12/06/17 Cabergoline [Cabergoline 0.5 mg Tablet] 1 tab PO TUFR@1800 12/06/17 Calcium Carbonate/Vitamin D3 [Calcium 600 + Vit D Tablet] 1 tab PO BID 12/06/17 Cyanocobalamin (Vitamin B-12) [Vitamin B-12 1000 Mcg Tablet] 2,000 mcg PO WSUPPER 12/06/17 Docusate Sodium [Colace 100 mg Capsule] 100 mg PO DAILYP PRN 12/06/17 Ferrous Sulfate [Feosol 325 mg Tablet] 325 mg PO WSUPPER 12/06/17 Losartan Potassium [Cozaar 25 mg Tablet] 25 mg PO WSUPPER 12/06/17 Memantine HCl/Donepezil HCl [Namzaric 28 mg-10 mg Capsule] 1 cap PO WSUPPER 09/24 Quetiapine Fumarate [Seroquel] 50 mg PO BIDACBS 12/06/17 Allergies/Adverse Reactions: TOBIN Inhibitors Allergy (Verified 08/24/17 12:47) Review of Systems Review of Systems: CONSTITUTIONAL : Fever, chills -- No; unexpalined fatigue -- No EENT: Denies eye, ear, throat, or mouth pain or symptoms. Denies nasal or sinus congestion or discharge. Denies throat, tongue, or mouth swelling or difficulty swallowing. CARDIOVASCULAR: Denies chest pain. No racing heart RESPIRATORY: Denies cough, no shortness of breath, difficulty breathing. GASTROINTESTINAL: Denies abdominal pain or distention. Denies nausea, vomiting , or diarrhea. No rectal bleeding. GENITOURINARY: Urinary symptoms -- no. MUSCULOSKELETAL: No acute weakness SKIN: Denies rash, lesions or sores. HEMATOLOGIC : Denies easy bruising or bleeding. LYMPHATIC: Denies swollen, enlarged glands. NEUROLOGICAL: New weakness, headaches, slured speach - No PSYCHIATRIC: Changes anxiety or stress, depression, suicidal ideation, or homicidal ideation -- No ALL OTHER SYSTEMS REVIEWED AND NEGATIVE. Physical Exam Vital Signs: Temp Pulse Resp BP Pulse Ox 97.3 F 71 19 126/86 H 99 12/06/17 10:38 12/06/17 10:38 12/06/17 14:01 12/06/17 14:01 12/06/17 14:01 GENERAL: Well-developed, no acute distress HEENT: Normocephalic/atraumatic NECK supple, no JVD CARDIOVASCULAR: RRR, normal S1-S2 LUNGS: CTA bilaterally ABDOMEN: Soft, NT, NL bowel sounds EXTREMITIES: No edema, clubbing, cyanosis NEUROLOGICAL: Alert, oriented to name, the time. She knew I was a doctor, but could not tell where she was. States she knows what can get the words out. She has good strength all 4 extremities. She is able to follow simple commands. Results Laboratory Results: 12/06/17 14:45 Lactic Acid 1.3 White blood cells 13.9, hemoglobin 11.8 hematocrit 35.9 platelets 244. Sodium 148, potassium 4.2, BUN 20, creatinine 0.75. Impressions: Chest X-Ray 12/06/17 10:49 IMPRESSION: NO ACUTE RADIOGRAPHIC FINDING IN THE CHEST. Head CT 12/06/17 10:49 IMPRESSION: MILD CHRONIC CHANGES OF ATROPHY AND MICROVASCULAR ISCHEMIA. NO ACUTE PROCESS. EVIDENCE OF ACUTE STROKE: No Assessment & Plan - Diagnosis (1) Pyelonephritis Is this a current diagnosis for this admission?: Yes Plan: Patient has received a dose of Zosyn at the emergency room. Will continue with this in light of recent hospitalization, pending urine and blood culture results. (2) Dementia Qualifiers: Dementia type: Alzheimer's disease Dementia behavioral disturbance: without behavioral disturbance Qualified Code(s): F03.90 - Unspecified dementia without behavioral disturbance Is this a current diagnosis for this admission?: Yes Plan: Resume home medications. Monitor. (3) Hypertension Qualifiers: Hypertension type: essential hypertension Qualified Code(s): I10 - Essential (primary) hypertension Is this a current diagnosis for this admission?: Yes Plan: Continue home medications. Monitor. (4) Near syncope Is this a current diagnosis for this admission?: Yes Plan: Likely secondary to patient's current UTIs. She may also be slightly dehydrated. She has received bolus of IV fluid in the ED. Will continue normal saline at 75 mL/h at this time. Continue to monitor patient on telemetry. - Plan Summary Plan Summary: The patient may turn around soon in the next 4-48 hours with fluid and antibiotics. Will admit to observation at this time. Will change to inpatient if no significant turnaround or if her condition worsens.
[2017-12-06] MEDS ORDERED: ENOXAPARIN SODIUM INJ 30 MG/0.3 ML DISP.SYRIN SUBCUT ONE (17:30)
[2017-12-06] MEDS: PIPERACILLIN SODIUM/TAZOBACTAM 3.375 GM in NORMAL SALINE 100 ML IV SCH ×2 (18:04→23:36)
[2017-12-06] MEDS ORDERED: DOCUSATE SODIUM 100 MG CAPSULE PO PRN (22:20)
[2017-12-06] MEDS ORDERED: (PENDING PHARMACY ID) (Memantine Hcl/Donepezil Hcl [Namzaric 28 Mg-10 Mg Capsule] 1 CAP) PO SCH (22:30)
[2017-12-06] MEDS ORDERED: CALCIUM CARBONATE 250 MG/VITAMIN D3 125 UNIT TABLET PO ONE (22:45)
[2017-12-06] MEDS ORDERED: QUETIAPINE FUMARATE 25 MG TABLET PO ONE (22:45)
[2017-12-06] MEDS ORDERED: ASPIRIN 81 MG TABLET, CHEWABLE PO ONE (22:45)
[2017-12-06] MEDS ORDERED: CYANOCOBALAMIN (VITAMIN B-12) 1,000 MCG TABLET PO ONE (22:45)
[2017-12-06] MEDS ORDERED: LOSARTAN POTASSIUM 25 MG TABLET PO ONE (22:45)
[2017-12-06] MEDS: NORMAL SALINE 1000 ML 1,000 ML IV PRN (23:37)
--- NOTE | 2017-12-06 23:48 | EKG REPORT ---
SEVERITY:- ABNORMAL ECG - SINUS RHYTHM NONSPECIFIC INTRAVENTRICULAR CONDUCTION DELAY PROBABLE LEFT VENTRICULAR HYPERTROPHY : Confirmed by: Ha Tovar 06-Dec-2017 23:47:38
[2017-12-07] MEDS: PIPERACILLIN SODIUM/TAZOBACTAM 3.375 GM in NORMAL SALINE 100 ML IV SCH ×3 (05:25→19:25)
[2017-12-07] MEDS: QUETIAPINE FUMARATE 25 MG TABLET PO SCH ×2 (09:25→19:24)
[2017-12-07] MEDS: ENOXAPARIN SODIUM INJ 30 MG/0.3 ML DISP.SYRIN SUBCUT SCH (09:26)
[2017-12-07] MEDS: CALCIUM CARBONATE 250 MG/VITAMIN D3 125 UNIT TABLET PO SCH ×2 (09:26→19:23)
[2017-12-07] MEDS ORDERED: LOSARTAN POTASSIUM 25 MG TABLET PO SCH (17:00)
[2017-12-07] MEDS ORDERED: FERROUS SULFATE 325 MG TABLET PO SCH (17:00)
[2017-12-07] MEDS ORDERED: ASPIRIN 81 MG TABLET, CHEWABLE PO SCH (17:00)
[2017-12-07] MEDS ORDERED: CYANOCOBALAMIN (VITAMIN B-12) 1,000 MCG TABLET PO SCH (17:00)
--- NOTE | 2017-12-07 21:02 | PDOC PROGRESS REPORT ---
Subjective Progress Note for:: 12/07/17 Subjective:: Doing better, no fever or chills. No urinary complaints at this time. Daughter at bedside. No abdominal pain, nausea or vomiting. Reason For Visit: AMS,UTI Physical Exam Vital Signs: Temp Pulse Resp BP Pulse Ox 99 F 74 18 126/86 H 99 12/07/17 16:00 12/07/17 16:00 12/07/17 16:00 12/07/17 16:00 12/07/17 16:00 Intake & Output 12/06/17 12/07/17 12/08/17 06:59 06:59 06:59 Intake Total 1380 Output Total 350 Balance 1030 Weight 59.4 kg GEN: NAD, well-developed, well-nourished CV: RRR, NL S1S2 LUNGS: CTA bilaterally ABDOMEN Soft, NT, +BS EXTERMITIES: No e/c/c NEURO: Alert, oriented to name, place. No acute weakness Results Impressions: Chest X-Ray 12/06/17 10:49 IMPRESSION: NO ACUTE RADIOGRAPHIC FINDING IN THE CHEST. Head CT 12/06/17 10:49 IMPRESSION: MILD CHRONIC CHANGES OF ATROPHY AND MICROVASCULAR ISCHEMIA. NO ACUTE PROCESS. EVIDENCE OF ACUTE STROKE: No Assessment & Plan - Diagnosis (1) Pyelonephritis Is this a current diagnosis for this admission?: Yes Plan: Will continue with Zosyn for now light of recent hospitalization, pending urine and blood culture results. Urine culture growing gram-negative rods, please follow identification of bug and sensitivity and adjust antibiotics as may be indicated. (2) Dementia Qualifiers: Dementia type: Alzheimer's disease Dementia behavioral disturbance: without behavioral disturbance Is this a current diagnosis for this admission?: Yes Plan: Stable. Continue home medications and to monitor. (3) Hypertension Qualifiers: Hypertension type: essential hypertension Qualified Code(s): I10 - Essential (primary) hypertension Is this a current diagnosis for this admission?: Yes Plan: Stable. Continue home medications and to monitor. (4) Near syncope Is this a current diagnosis for this admission?: Yes Plan: Likely secondary to patient's current UTIs. She may also be slightly dehydrated. She had received bolus of IV fluid in the ED. Will continue normal saline at 75 mL/h. Continue to monitor patient on telemetry.
[2017-12-07] MEDS: NORMAL SALINE 1000 ML 1,000 ML IV PRN (21:18)
[2017-12-08] MEDS: PIPERACILLIN SODIUM/TAZOBACTAM 3.375 GM in NORMAL SALINE 100 ML IV SCH ×2 (00:12→05:50)
[2017-12-08 06:40] LABS: ABSOLUTE EOSINOPHILS # (AUTO) 0.3 10^3/uL (0.0-0.6); ABSOLUTE LYMPHOCYTES (AUTO) 1.2 10^3/uL (0.5-4.7); BASOPHILS % (AUTO) 0.7 % (0-2); EOSINOPHILS % (AUTO) 4.1 % (0-6); HEMATOCRIT 31.9 % (36.0-47.0); HEMOGLOBIN 10.4 g/dL (12.0-15.5); LYMPHOCYTES % (AUTO) 18.9 % (13-45); MEAN CORPUSCULAR HEMOGLOBIN 24.5 pg (27.0-33.4); MEAN CORPUSCULAR HGB CONC 32.7 g/dL (32.0-36.0); MEAN CORPUSCULAR VOLUME 75 fl (80-97); PLATELET COUNT 192 10^3/uL (150-450); RED BLOOD COUNT 4.25 10^6/uL (3.72-5.28); RED CELL DISTRIBUTION WIDTH 19.9 % (11.5-14.0); SEGMENTED NEUTROPHILS % (AUTO) 61.3 % (42-78); TOTAL CELLS COUNTED % (AUTO) 100 %; WHITE BLOOD COUNT 6.5 10^3/uL (4.0-10.5)
[2017-12-08 06:52] LABS: ANION GAP 8 (5-19); BLOOD UREA NITROGEN 12 mg/dL (7-20); CALCIUM 8.4 mg/dL (8.4-10.2); CARBON DIOXIDE 25 mmol/L (22-30); CHLORIDE 111 mmol/L (98-107); GLUCOSE 87 mg/dL (75-110); POTASSIUM 3.6 mmol/L (3.6-5.0); SODIUM 144.2 mmol/L (137-145)
[2017-12-08] MEDS ORDERED: CALCIUM CARBONATE 250 MG/VITAMIN D3 125 UNIT TABLET PO SCH (08:00)
[2017-12-08 08:14] VITALS: BP 138/58
[2017-12-08] MEDS: QUETIAPINE FUMARATE 25 MG TABLET PO SCH (08:15)
[2017-12-08] MEDS ORDERED: CIPROFLOXACIN HCL 500 MG TABLET PO SCH (10:00)
[2017-12-08] MEDS: ENOXAPARIN SODIUM INJ 30 MG/0.3 ML DISP.SYRIN SUBCUT SCH (11:14)
[2017-12-08] MEDS ORDERED: FERROUS SULFATE 325 MG TABLET PO SCH (12:00)
[2017-12-08] MEDS ORDERED: CABERGOLINE PO SCH (18:00)
--- NOTE | 2017-12-08 18:53 | PDOC DISCHARGE SUMMARY ---
General - Admit/Disc Date/PCP Admission Date/Primary Care Provider: 12/06/17 14:34 Discharge Date: 12/08/17 - Discharge Diagnosis (1) UTI (urinary tract infection), bacterial Is this a current diagnosis for this admission?: Yes Summary: Symptomatically improved. Urine culture positive for E. coli. Transitioned from IV antibiotics (Zosyn) to narrower coverage with Cipro 500mg BID for 3 days (2) Dementia Is this a current diagnosis for this admission?: Yes Summary: At baseline. Has excellent support from daughter (3) Hypertension Is this a current diagnosis for this admission?: Yes Summary: BP stable at discharge, continued home medications. (4) Near syncope Is this a current diagnosis for this admission?: Yes Summary: Due due acute infection from UTI, now resolved. - Additional Information Resuscitation Status: Full Code Discharge Diet: As Tolerated Discharge Activity: Balance Activity w/Rest Prescriptions: Ciprofloxacin HCl [Cipro 500 mg Tablet] 500 mg PO Q12 #6 tablet Home Medications: Aspirin [Aspirin 81 mg Chewable Tablet] 81 mg PO WSUPPER 12/06/17 Cabergoline [Cabergoline 0.5 mg Tablet] 1 tab PO TUFR@1800 12/06/17 Calcium Carbonate/Vitamin D3 [Calcium 600 + Vit D Tablet] 1 tab PO BID 12/06/17 Cyanocobalamin (Vitamin B-12) [Vitamin B-12 1000 mcg Tablet] 2,000 mcg PO WSUPPER 12/06/17 Docusate Sodium [Colace 100 mg Capsule] 100 mg PO DAILYP PRN 12/06/17 Ferrous Sulfate [Feosol 325 mg Tablet] 325 mg PO WSUPPER 12/06/17 Losartan Potassium [Cozaar 25 mg Tablet] 25 mg PO WSUPPER 12/06/17 Memantine HCl/Donepezil HCl [Namzaric 28 mg-10 mg Capsule] 1 cap PO WSUPPER 09/24 Quetiapine Fumarate [Seroquel] 50 mg PO BIDACBS 12/06/17 Ciprofloxacin HCl [Cipro 500 mg Tablet] 500 mg PO Q12 #6 tablet 12/08/17 History of Present Illness History of Present Illness: SCARLETT CHAUDHARI is a 82 year old female with Alzheimer's dementia with recent admission to this hospital for altered mental status. She had workup at that time also included head CT and MRI that were negative for significant lesion she was diagnosed with TIA. Patient lives at home with her daughter. She now presents with symptoms of confusion and either syncope or near syncope. She denies fever or chills, she has not had cough, denies dysuria, no urinary frequency. Evaluation in the ED significant for pyuria and leukocytosis with white count 13.9. Head CT negative for acute process. Patient was treated with Zosyn and IV fluid and referred for admission to hospitalist service for further evaluation and management. Physical Exam Vital Signs: Temp Pulse Resp BP Pulse Ox 98.2 F 69 16 138/58 H 94 12/08/17 12:38 12/08/17 12:38 12/08/17 12:38 12/08/17 12:38 12/08/17 12:38 Intake & Output 12/07/17 12/08/17 12/09/17 06:59 06:59 06:59 Intake Total 1380 2050 Output Total 350 2050 Balance 1030 0 Weight 59.4 kg 62.2 kg General appearance: PRESENT: no acute distress, other - Pleasent, demented Mouth exam: PRESENT: moist Respiratory exam: PRESENT: unlabored. ABSENT: wheezes Cardiovascular exam: PRESENT: +S1, +S2. ABSENT: tachycardia GI/Abdominal exam: PRESENT: soft. ABSENT: tenderness Neurological exam: PRESENT: alert, awake, other - Answers some questions appropriately, underlying dementia Results Laboratory Results: 12/08/17 06:10 12/08/17 06:10 12/08/17 12/08/17 06:10 06:10 WBC 6.5 RBC 4.25 Hgb 10.4 L Hct 31.9 L MCV 75 L MCH 24.5 L MCHC 32.7 RDW 19.9 H Plt Count 192 Seg Neutrophils % 61.3 Lymphocytes % 18.9 Monocytes % 15.0 H Eosinophils % 4.1 Basophils % 0.7 Absolute Neutrophils 4.0 Absolute Lymphocytes 1.2 Absolute Monocytes 1.0 Absolute Eosinophils 0.3 Absolute Basophils 0.0 Sodium 144.2 Potassium 3.6 Chloride 111 H Carbon Dioxide 25 Anion Gap 8 BUN 12 Creatinine 0.69 Est GFR ( Amer) > 60 Est GFR (Non-Af Amer) > 60 Glucose 87 Calcium 8.4 Impressions: Chest X-Ray 12/06/17 10:49 IMPRESSION: NO ACUTE RADIOGRAPHIC FINDING IN THE CHEST. Head CT 12/06/17 10:49 IMPRESSION: MILD CHRONIC CHANGES OF ATROPHY AND MICROVASCULAR ISCHEMIA. NO ACUTE PROCESS. EVIDENCE OF ACUTE STROKE: No Qualifiers - * PATIENT BEING DISCHARGED WITH ANY OF THE FOLLOWING DIAGNOSIS: No
== END 2017-12-08 13:19 | disposition home or self-care (01) ==
LOC: ER 10:27 → EH 14:34 → UNDOADMIN 14:34 → INTOOBSV 14:34 → 4N 20:11
PROVIDERS: ADMIT Family Medicine; ATTEND Family Medicine
DX: N39.0 Urinary tract infection, site not specified (principal); B96.20 Unspecified Escherichia coli [E. coli] as the cause of diseases classified elsewhere; R31.9 Hematuria, unspecified; R80.9 Proteinuria, unspecified; G30.9 Alzheimer's disease, unspecified; F02.80 Dementia in other diseases classified elsewhere, unspecified severity, without behavioral disturbance, psychotic disturbance, mood disturbance, and anxiety; I10 Essential (primary) hypertension; R55 Syncope and collapse; M19.90 Unspecified osteoarthritis, unspecified site; Z79.82 Long term (current) use of aspirin; Z79.899 Other long term (current) drug therapy; Z90.49 Acquired absence of other specified parts of digestive tract
CPT/HCPCS: 93005; 99285; 96360; 51701; 36415 ×2; 87040; 87086; 82553; 82962; 82550; 83735; 85025 ×2; 85610; 85730; 87088; 80048; 80053; 81001; 84484; 87186; 83605; 71045; 70450; 93010; 97116; 97162; G0378 ×4; A9270 ×14; J1650 ×2; J7030 ×2; J3370; J2543 ×3; G8978; G8979; G8980

== ENCOUNTER 2018-01-05 09:21 | Emergency (ER) | payer MEDICARE, OTHER, MEDICAID ==
--- NOTE | 2018-01-05 10:12 | ER Document Report ---
ED General - General Chief Complaint: Headache >24 hrs old Stated Complaint: HEAD PAIN Time Seen by Provider: 01/05/18 10:02 Mode of Arrival: Ambulatory Information source: Patient, Relative Notes: 82-year-old female history of dementia presents with 1 week duration of headache. Patient notes it hurts with range of motion. Denies any fevers or chills. Patient denies any recent trauma had a fall in August. No neurological deficits are noted TRAVEL OUTSIDE OF THE [place] IN LAST 30 DAYS: No - HPI Onset: Last week Onset/Duration: Waxing and waning Quality of pain: Achy Severity: Mild Pain Level: 1 Associated symptoms: Body/muscle aches, Headache Exacerbated by: Movement Relieved by: Denies Similar symptoms previously: No Recently seen / treated by doctor: No - Related Data Allergies/Adverse Reactions: TOBIN Inhibitors Allergy (Verified 01/05/18 11:04) Past Medical History - Social History Smoking Status: Never Smoker Cigarette use (# per day): No Chew tobacco use (# tins/day): No Smoking Education Provided: No Family History: Reviewed & Not Pertinent, DM Patient has suicidal ideation: No Patient has homicidal ideation: No - Past Medical History Cardiac Medical History: Reports: Hx Hypercholesterolemia, Hx Hypertension - not medicated Endocrine Medical History: Reports: Hx Diabetes Mellitus Type 2 Renal/ Medical History: Denies: Hx Peritoneal Dialysis Musculoskeltal Medical History: Reports Hx Arthritis - osteo Psychiatric Medical History: Reports: Hx Dementia Denies: Hx Depression Past Surgical History: Reports: Hx Cholecystectomy Review of Systems - Review of Systems Notes: REVIEW OF SYSTEMS: CONSTITUTIONAL : Denies fever, chills, or sweats. Denies recent illness. EENT: Denies eye, ear, throat, or mouth pain or symptoms. Denies nasal or sinus congestion or discharge. Denies throat, tongue, or mouth swelling or difficulty swallowing. CARDIOVASCULAR: Denies chest pain. Denies palpitations or racing or irregular heart beat. Denies ankle edema. RESPIRATORY: Denies cough, cold, or chest congestion. Denies shortness of breath, difficulty breathing, or wheezing. GASTROINTESTINAL: Denies abdominal pain or distention. Denies nausea, vomiting , or diarrhea. Denies blood in vomitus, stools, or per rectum. Denies black, tarry stools. Denies constipation. GENITOURINARY: Denies difficulty urinating, painful urination, burning, frequency, blood in urine, or discharge. FEMALE GENITOURINARY: Denies vaginal bleeding, heavy or abnormal periods, irregular periods. Denies vaginal discharge or odor. MUSCULOSKELETAL: Denies back or neck pain or stiffness. Denies joint pain or swelling. SKIN: Denies rash, lesions or sores. HEMATOLOGIC : Denies easy bruising or bleeding. LYMPHATIC: Denies swollen, enlarged glands. NEUROLOGICAL: Admits to headache PSYCHIATRIC: Denies anxiety or stress. Denies depression, suicidal ideation, or homicidal ideation. ALL OTHER SYSTEMS REVIEWED AND NEGATIVE. PHYSICAL EXAMINATION: GENERAL: Well-appearing, well-nourished and in no acute distress. HEAD: Atraumatic, normocephalic. EYES: Pupils equal round and reactive to light, extraocular movements intact, conjunctiva are normal. ENT: Nares patent, oropharynx clear without exudates. Moist mucous membranes. NECK: Mild limitation range of motion of the neck associated with pain LUNGS: Breath sounds clear to auscultation bilaterally and equal. No wheezes rales or rhonchi. HEART: Regular rate and rhythm without murmurs ABDOMEN: Soft, nontender, nondistended abdomen. No guarding, no rebound. No masses appreciated. Female : deferred Musculoskeletal: Normal range of motion, no pitting or edema. No cyanosis. NEUROLOGICAL: Cranial nerves grossly intact. Normal speech, normal gait. Normal sensory, motor exams PSYCH: Normal mood, normal affect. SKIN: Warm, Dry, normal turgor, no rashes or lesions noted. Dictation was performed using [employer] voice recognition software Physical Exam - Vital signs Vitals: Temp Pulse Resp BP Pulse Ox 98.1 F 78 18 130/70 H 97 01/05/18 09:35 01/05/18 09:35 01/05/18 09:35 01/05/18 09:35 01/05/18 09:35 Course - Re-evaluation Re-evalutation: 01/05/18 10:12 Patient's pain appears to be more cervical rather than headache related, CT ordered 01/05/18 11:11 CT head notes only microvascular changes, CT cervical spine there is no bony spurs at the C1-C2 region with the patient's pain and decreased range of motion is located, the report was provided to the family as well, I will treat with anti-inflammatories give him orthopedic follow-up there is no signs of a CVA After performing a Medical Screening Examination, I estimate there is LOW risk for ACUTE GLAUCOMA, TEMPORAL ARTERITIS, MENINGITIS, INCRANIAL HEMORRHAGE, or ISCHEMIC STROKE thus I consider the discharge disposition reasonable. I have reevaluated this patient multiple times and no significant life threatening changes are noted. The patient and I have discussed the diagnosis and risks, and we agree with discharging home with close follow-up with the understanding that symptoms and presentations can change. We also discussed returning to the Emergency Department immediately if new or worsening symptoms occur. We have discussed the symptoms which are most concerning (e.g., changing or worsening symptoms, new numbness or weakness, vomiting, fever) that necessitate immediate return. - Vital Signs Vital signs: Temp Pulse Resp BP Pulse Ox 97.9 F 74 20 145/75 H 98 01/05/18 11:00 01/05/18 11:00 01/05/18 11:00 01/05/18 11:00 01/05/18 11:00 - Diagnostic Test Radiology reviewed: Image reviewed, Reports reviewed - CT head without contrast notes no acute CVA Discharge - Discharge Clinical Impression: Bony spur, Neck pain Condition: Stable Disposition: HOME, SELF-CARE Instructions: Neck Injury (Cervical Strain) ([facility]) Referrals: CLARENCE MERCADO MD [ACTIVE STAFF] - Follow up in 3-5 days
--- NOTE | 2018-01-05 10:39 | RADIOLOGY REPORT (SQ) ---
EXAM DESCRIPTION: CT HEAD WITHOUT COMPLETED DATE/TIME: 01/05/2018 10:21 am REASON FOR STUDY: headache COMPARISON: 12/06/2017 TECHNIQUE: Axial images acquired through the brain without intravenous contrast. Images reviewed wi th bone, brain and subdural windows. Additional sagittal and coronal reconstructions were generated. Images stored on PACS. All CT scanners at this facility use dose modulation, iterative reconstruction, and/or weight based d osing when appropriate to reduce radiation dose to as low as reasonably achievable (ALARA). [facility]: Dose Right [facility]: CareDose [facility]: Dose Right [facility]: Teradose 4D [facility]: Smart [employer] RADIATION DOSE: CT Rad equipment meets quality standard of care and radiation dose reduction techniq ues were employed. CTDIvol: 53.2 mGy. DLP: 991 mGy-cm. mGy. LIMITATIONS: None. FINDINGS: VENTRICLES: Normal size and contour. CEREBRUM: No masses. No hemorrhage. No midline shift. No evidence for acute infarction. Areas of l ow density in the white matter most likely chronic small vessel ischemic changes. CEREBELLUM: No masses. No hemorrhage. No alteration of density. No evidence for acute infarction. EXTRAAXIAL SPACES: No fluid collections. No masses. ORBITS AND GLOBE: No intra- or extraconal masses. Normal contour of globe without masses. CALVARIUM: No fracture. PARANASAL SINUSES: No fluid or mucosal thickening. SOFT TISSUES: No mass or hematoma. OTHER: No other significant finding. IMPRESSION: MILD CHRONIC MICROVASCULAR ISCHEMIA. NO ACUTE IMAGING FINDINGS IN THE BRAIN. EVIDENCE OF ACUTE STROKE: NO. COMMENT: Quality ID # [id number]: Final reports with documentation of one or more dose reduction techniques (e.g., Automated exposure control, adjustment of the mA and/or kV according to patient size, use of iterative reconstruction technique) TECHNICAL DOCUMENTATION: JOB ID: [id number] [employer]- All Rights Reserved Reading location - IP/workstation name: [email or web address]
--- NOTE | 2018-01-05 10:45 | RADIOLOGY REPORT (SQ) ---
EXAM DESCRIPTION: CT CERVICAL SPINE WITHOUT COMPLETED DATE/TIME: 01/05/2018 10:21 am REASON FOR STUDY: headache neck pain, decreased range of motion, pain at the craniocervical junctio n COMPARISON: CT brain 01/05/2018 CT cervical spine 08/24/2017 TECHNIQUE: Axial images acquired through the cervical spine without intravenous contrast. Images re viewed with lung, soft tissue and bone windows. Reconstructed coronal and sagittal MPR images review ed. Images stored on PACS. All CT scanners at this facility use dose modulation, iterative reconstruction, and/or weight based d osing when appropriate to reduce radiation dose to as low as reasonably achievable (ALARA). [facility]: Dose Right [facility]: CareDose [facility]: Dose Right [facility]: Teradose 4D [facility]: [employer] RADIATION DOSE: CT Rad equipment meets quality standard of care and radiation dose reduction techniq ues were employed. CTDIvol: 11.5 mGy. DLP: 240 mGy-cm. mGy. LIMITATIONS: None. FINDINGS: ALIGNMENT: Anatomic. MINERALIZATION: Normal. VERTEBRAL BODIES: No fractures or dislocation. DISCS: Craniocervical junction is unremarkable. At C1-2 there is advanced osteoarthritis between the dens and anterior arch of C1. There is also bulky bony spurring along the articulation between the right lateral mass of C1 and C2. Accessory ossification of ligaments between the dens and clivus. T hese findings are stable compared to 08/24/2017. C2-3 has left facet hypertrophy without central or foraminal stenosis. At C3-4, minimal posterior disc bulging is present without central stenosis. High-grade bilateral fo raminal narrowing right greater than left from facet and uncovertebral hypertrophy. At C4-5 there is minimal grade 1 anterolisthesis of C4 over C5 related to bilateral bulky facet arthr opathy right greater than left. No central stenosis. Mild right foraminal narrowing. No left elizabeth inal narrowing. At C5-6, there is moderate central canal stenosis from broad diffuse disc bulge and bony spurring lef t greater than right. High-grade bilateral foraminal narrowing is present from facet and uncovertebr al hypertrophy. At C6-7, borderline central canal narrowing results from broad diffuse posterior disc bulge and bony spurring. Mild right, high-grade left foraminal narrowing from facet and uncovertebral hypertrophy. C7-T1 is unremarkable. FACETS, LATERAL MASSES, POSTERIOR ELEMENTS: No fractures. No dislocation. No acute findings. HARDWARE: None in the spine. VISUALIZED RIBS: No fractures. LUNG APICES AND SOFT TISSUES: No significant or acute findings. OTHER: This result was called to IMPRESSION: No acute findings. Diffuse degenerative changes TECHNICAL DOCUMENTATION: JOB ID: [id number] Quality ID # [id number]: Final reports with documentation of one or more dose reduction techniques (e.g., Au tomated exposure control, adjustment of the mA and/or kV according to patient size, use of iterative reconstruction technique) 2010 [email or web address]- All Rights Reserved Reading location - IP/workstation name: [email or web address]
[2018-01-05 11:04] VITALS: BP 145/75
== END 2018-01-05 11:15 | disposition home or self-care (01) ==
LOC: ER 09:21
DX: M77.9 Enthesopathy, unspecified (principal); M54.2 Cervicalgia; R51 Headache; I10 Essential (primary) hypertension; E11.9 Type 2 diabetes mellitus without complications
CPT/HCPCS: 70450; 72125; 99284

== ENCOUNTER → 2018-01-06 | Outpatient (CLI) | payer MEDICARE, OTHER, MEDICAID | LOC: LAB 12:54 | PROVIDERS: ATTEND Emergency Medicine | DX: R22.2 Localized swelling, mass and lump, trunk (principal) | CPT/HCPCS: 87070; 87205 ==

== ENCOUNTER 2018-01-09 11:33 | Observation (INO) | payer MEDICARE, OTHER, MEDICAID ==
--- NOTE | 2018-01-09 12:21 | RADIOLOGY REPORT (SQ) ---
EXAM DESCRIPTION: CT HEAD WITHOUT COMPLETED DATE/TIME: 01/09/2018 12:09 pm REASON FOR STUDY: ams COMPARISON: 01/05/2018. TECHNIQUE: Axial images acquired through the brain without intravenous contrast. Images reviewed wi th bone, brain and subdural windows. Additional sagittal and coronal reconstructions were generated. Images stored on PACS. All CT scanners at this facility use dose modulation, iterative reconstruction, and/or weight based d osing when appropriate to reduce radiation dose to as low as reasonably achievable (ALARA). [facility]: Dose Right [facility]: CareDose [facility]: Dose Right [facility]: Teradose 4D [facility]: [address] [employer] [employer] RADIATION DOSE: CT Rad equipment meets quality standard of care and radiation dose reduction techniq ues were employed. CTDIvol: 53.2 mGy. DLP: 937 mGy-cm. mGy. LIMITATIONS: None. FINDINGS: VENTRICLES: Prominent. CEREBRUM: No masses. No hemorrhage. No midline shift. Areas of low density in the white matter mos t likely due to chronic micro-vascular ischemic change. No evidence for acute infarction. CEREBELLUM: No masses. No hemorrhage. No alteration of density. No evidence for acute infarction. EXTRAAXIAL SPACES: Mild age-related involutional change. No fluid collections. No masses. ORBITS AND GLOBE: No intra- or extraconal masses. Normal contour of globe without masses. CALVARIUM: No fracture. PARANASAL SINUSES: No fluid or mucosal thickening. SOFT TISSUES: No mass or hematoma. OTHER: No other significant finding. IMPRESSION: MILD CHRONIC CHANGES OF ATROPHY AND MICROVASCULAR ISCHEMIA. NO ACUTE PROCESS. EVIDENCE OF ACUTE STROKE: NO. TECHNICAL DOCUMENTATION: JOB ID: [id number] Quality ID # [id number]: Final reports with documentation of one or more dose reduction techniques (e.g., Au tomated exposure control, adjustment of the mA and/or kV according to patient size, use of iterative reconstruction technique) 2010 [email or web address]- All Rights Reserved Reading location - IP/workstation name: [email or web address]
--- NOTE | 2018-01-09 12:36 | RADIOLOGY REPORT (SQ) ---
EXAM DESCRIPTION: CHEST SINGLE VIEW COMPLETED DATE/TIME: 01/09/2018 12:27 pm REASON FOR STUDY: syncope COMPARISON: None. EXAM PARAMETERS: NUMBER OF VIEWS: One view. TECHNIQUE: Single frontal radiographic view of the chest acquired. RADIATION DOSE: NA LIMITATIONS: None. FINDINGS: LUNGS AND PLEURA: No opacities, masses or pneumothorax. No pleural effusion. MEDIASTINUM AND HILAR STRUCTURES: No masses. Contour normal. HEART AND VASCULAR STRUCTURES: Heart normal in size. Normal vasculature. BONES: No acute findings. HARDWARE: None in the chest. OTHER: No other significant finding. IMPRESSION: NO ACUTE RADIOGRAPHIC FINDING IN THE CHEST. TECHNICAL DOCUMENTATION: JOB ID: [id number] [employer]- All Rights Reserved Reading location - IP/workstation name: [email or web address]
[2018-01-09 13:20] LABS: ABSOLUTE BASOPHILS # (AUTO) 0.1 10^3/uL (0.0-0.2); ABSOLUTE EOSINOPHILS # (AUTO) 0.1 10^3/uL (0.0-0.6); ABSOLUTE MONOCYTES (AUTO) 0.5 10^3/uL (0.1-1.4); ABSOLUTE NEUT (AUTO) 11.8 10^3/uL (1.7-8.2); BASOPHILS % (AUTO) 0.4 % (0-2); EOSINOPHILS % (AUTO) 0.6 % (0-6); HEMATOCRIT 38.3 % (36.0-47.0); HEMOGLOBIN 12.5 g/dL (12.0-15.5); INTERNATIONAL RATION (INR) 1.09; LYMPHOCYTES % (AUTO) 7.3 % (13-45); MEAN CORPUSCULAR HEMOGLOBIN 26.7 pg (27.0-33.4); MEAN CORPUSCULAR HGB CONC 32.5 g/dL (32.0-36.0); MEAN CORPUSCULAR VOLUME 82 fl (80-97); MONOCYTES % (AUTO) 3.6 % (3-13); PLATELET COUNT 199 10^3/uL (150-450); PROTHROMBIN TIME 14.7 SEC (11.4-15.4); RED BLOOD COUNT 4.67 10^6/uL (3.72-5.28); RED CELL DISTRIBUTION WIDTH 24.7 % (11.5-14.0); SEGMENTED NEUTROPHILS % (AUTO) 88.1 % (42-78); TOTAL CELLS COUNTED % (AUTO) 100 %; WHITE BLOOD COUNT 13.4 10^3/uL (4.0-10.5)
[2018-01-09 13:35] LABS: ALANINE AMINOTRANSFERASE 24 U/L (9-52); ALBUMIN 3.6 g/dL (3.5-5.0); ALKALINE PHOSPHATASE 72 U/L (38-126); ANION GAP 10 (5-19); ASPARTATE AMINO TRANSFERASE 22 U/L (14-36); BILIRUBIN,DIRECT 0.2 mg/dL (0.0-0.4); BILIRUBIN,TOTAL 0.2 mg/dL (0.2-1.3); BLOOD UREA NITROGEN 15 mg/dL (7-20); CARBON DIOXIDE 26 mmol/L (22-30); CHLORIDE 107 mmol/L (98-107); CREATINE KINASE 27 U/L (30-135); GLUCOSE 98 mg/dL (75-110); POTASSIUM 4.2 mmol/L (3.6-5.0); SODIUM 142.7 mmol/L (137-145); TOTAL PROTEIN 6.4 g/dL (6.3-8.2)
[2018-01-09 13:46] LABS: CREATINE KINASE MB 0.58 ng/mL (<4.55)
[2018-01-09 13:48] LABS: TROPONIN I < 0.012 ng/mL
[2018-01-09 13:52] LABS: APPEARANCE,URINE CLEAR; BILIRUBIN,URINE NEGATIVE (NEGATIVE); COLOR,URINE YELLOW; GLUCOSE, URINE NEGATIVE (NEGATIVE); KETONES,URINE NEGATIVE (NEGATIVE); LEUKOCYTE ESTERASE,URINE NEGATIVE (NEGATIVE); NITRITE,URINE NEGATIVE (NEGATIVE); PROTEIN,URINE 30 mg/dL (NEGATIVE); UROBILINOGEN,URINE NEGATIVE mg/dL (<2.0)
[2018-01-09 14:06] LABS: ACANTHOCYTES SLIGHT; ANISOCYTOSIS 3+; OVALOCYTES 1+; PLATELET COMMENT ADEQUATE; POIKILOCYTOSIS 2+; SCHISTOCYTES 1+
[2018-01-09] MEDS ORDERED: ACETAMINOPHEN 325 MG TABLET PO PRN (15:36)
[2018-01-09] MEDS ORDERED: IPRATROPIUM/ALBUTEROL 0.5-2.5 MG/3 ML AMPUL NEB PRN (15:36)
[2018-01-09] MEDS ORDERED: ONDANSETRON HCL INJ/PF 4 MG/2 ML SDV IV PRN (15:36)
[2018-01-09] MEDS ORDERED: ONDANSETRON 4 MG TAB.RAPDIS PO PRN (15:36)
--- NOTE | 2018-01-09 15:56 | PDOC H&P ---
History of Present Illness Admission Date/PCP: 01/09/18 RASHAWN MALIK MD Patient complains of: reduced responsiveness History of Present Illness: SCARLETT CHAUDHARI is a 82 year old female with past medical history of Dementia Hypertension Suspected TIA Pituitary tumor Recurrent syncope who was brought in by her family for reduced responsiveness and significant hypotension. Home meds: ASA 81 daily Calcium with D3 BID cabergoline 0.5mg Tue/FRi Colace 100mg PO PRN Ferrous sulfate daily Seroquel 50mg BID Losartan 25mg PO BID Keflex 250mg po q6h for 5 days for a chest wall furuncle She presented to the ER due to reduced responsiveness and the ER physician reports initial hypotension which improved with IV fluids Initial BP not recorded on vital signs. Around 3 pm when I was in the patient's room monitor read BP as 150/78 She is awake and alert, follows commands and is at bedside per daughter Pili (HPOA) who is at the bedside. The daughter reports that the patient has severe dementia had prior episodes of reduced responsiveness while just sitting in the chair. She also had syncopal episodes more than a decade ago when her dementia was not so severe and had seen a correctional medicine physician back then, but is not aware of the underlying cause. She states that the patient is a FULL CODE. No observed focal weakness/seizure like movements/tongue biting/incontinence/ recent fever/cough/illness etc. She was started on a course of keflex a couple of days ago for a furuncle on the anterior chest wall. The patient has no complaints at present Past Medical History Cardiac Medical History: Reports: Hypertension - not medicated Musculoskeltal Medical History: Reports: Arthritis - osteo Psychiatric Medical History: Reports: Dementia Past Surgical History Past Surgical History: Reports: Cholecystectomy Social History Smoking Status: Never Smoker Frequency of Alcohol Use: None Hx Recreational Drug Use: No Drugs: None Hx Prescription Drug Abuse: No Family History Family History: DM, Hypertension Parental Family History Reviewed: Yes Children Family History Reviewed: Yes Sibling(s) Family History Reviewed.: Yes Medication/Allergy Home Medications: Aspirin [Aspirin 81 mg Chewable Tablet] 81 mg PO WSUPPER 12/06/17 Cabergoline [Cabergoline 0.5 mg Tablet] 1 tab PO TUFR@1800 12/06/17 Calcium Carbonate/Vitamin D3 [Calcium 600 + Vit D Tablet] 1 tab PO BID 12/06/17 Cyanocobalamin (Vitamin B-12) [Vitamin B-12 1000 mcg Tablet] 2,000 mcg PO WSUPPER 12/06/17 Docusate Sodium [Colace 100 mg Capsule] 100 mg PO DAILYP PRN 12/06/17 Ferrous Sulfate [Feosol 325 mg Tablet] 325 mg PO WSUPPER 12/06/17 Losartan Potassium [Cozaar 25 mg Tablet] 25 mg PO WSUPPER 12/06/17 Memantine HCl/Donepezil HCl [Namzaric 28 mg-10 mg Capsule] 1 cap PO WSUPPER 09/24 Quetiapine Fumarate [Seroquel] 50 mg PO BIDACBS 12/06/17 Ciprofloxacin HCl [Cipro 500 mg Tablet] 500 mg PO Q12 #6 tablet 12/08/17 Allergies/Adverse Reactions: TOBIN Inhibitors Allergy (Verified 01/09/18 12:11) Review of Systems ROS unobtainable: Due to mental status Physical Exam Vital Signs: Intake & Output 01/08/18 01/09/18 01/10/18 06:59 06:59 06:59 Weight 69.1 kg General appearance: PRESENT: no acute distress, thin Head exam: PRESENT: normocephalic Eye exam: PRESENT: PERRLA. ABSENT: scleral icterus Ear exam: PRESENT: normal external ear exam Mouth exam: PRESENT: moist, neck supple Respiratory exam: PRESENT: symmetrical, unlabored. ABSENT: crackles, wheezes Cardiovascular exam: PRESENT: RRR. ABSENT: diastolic murmur, systolic murmur GI/Abdominal exam: PRESENT: normal bowel sounds, soft. ABSENT: tenderness Rectal exam: PRESENT: deferred Gentrourinary exam: ABSENT: indwelling catheter Extremities exam: ABSENT: calf tenderness, joint swelling, pedal edema, tenderness Musculoskeletal exam: PRESENT: normal inspection Neurological exam: PRESENT: alert, awake, other - dementia, not oriented to place or time Psychiatric exam: PRESENT: normal mood Skin exam: ABSENT: rash Results Laboratory Results: 01/09/18 12:45 01/09/18 12:45 01/09/18 01/09/18 01/09/18 12:45 12:45 13:01 WBC 13.4 H RBC 4.67 Hgb 12.5 Hct 38.3 MCV 82 MCH 26.7 L MCHC 32.5 RDW 24.7 H Plt Count 199 Seg Neutrophils % 88.1 H Lymphocytes % 7.3 L Monocytes % 3.6 Eosinophils % 0.6 Basophils % 0.4 Absolute Neutrophils 11.8 H Absolute Lymphocytes 1.0 Absolute Monocytes 0.5 Absolute Eosinophils 0.1 Absolute Basophils 0.1 Sodium 142.7 Potassium 4.2 Chloride 107 Carbon Dioxide 26 Anion Gap 10 BUN 15 Creatinine 0.60 Est GFR ( Amer) > 60 Est GFR (Non-Af Amer) > 60 Glucose 98 Calcium 9.0 Magnesium 2.3 Total Bilirubin 0.2 AST 22 ALT 24 Alkaline Phosphatase 72 Total Protein 6.4 Albumin 3.6 Urine Color YELLOW Urine Appearance CLEAR Urine pH 6.0 Ur Specific [place] 1.020 Urine Protein 30 H Urine Glucose (UA) NEGATIVE Urine Ketones NEGATIVE Urine Blood NEGATIVE Urine Nitrite NEGATIVE Ur Leukocyte Esterase NEGATIVE Urine WBC (Auto) 1 Urine RBC (Auto) 1 01/09/18 01/09/18 12:45 12:45 Creatine Kinase 27 L CK-MB (CK-2) 0.58 Troponin I < 0.012 Impressions: Chest X-Ray 01/09/18 11:40 IMPRESSION: NO ACUTE RADIOGRAPHIC FINDING IN THE CHEST. Head CT 01/09/18 11:59 IMPRESSION: MILD CHRONIC CHANGES OF ATROPHY AND MICROVASCULAR ISCHEMIA. NO ACUTE PROCESS. EVIDENCE OF ACUTE STROKE: NO. Assessment & Plan - Diagnosis (1) Syncope and collapse Is this a current diagnosis for this admission?: Yes Plan: Monitor on tele, watch for arrythmias Check Echo Check EEG to r/o seizures. (2) Hypotension Is this a current diagnosis for this admission?: Yes Plan: Resolved with IV fluid hydration. Continue to monitor and restart Losartan as tolerated (3) Pituitary tumor Is this a current diagnosis for this admission?: Yes Plan: Continue Cabergoline (4) Dementia Is this a current diagnosis for this admission?: Yes Plan: Continue memantine/Aricept (5) DVT prophylaxis Is this a current diagnosis for this admission?: Yes Plan: S/C Lovenox - Time Time Spent: 50 to 70 Minutes
[2018-01-09] MEDS ORDERED: (PENDING PHARMACY ID) (Quetiapine Fumarate [Seroquel] 50 MG) PO SCH (16:00)
--- NOTE | 2018-01-09 16:13 | ER Document Report ---
ED General - General Chief Complaint: Low Blood Pressure Stated Complaint: BLOOD PRESSURE PROBLEMS Time Seen by Provider: 01/09/18 11:39 TRAVEL OUTSIDE OF THE [place] IN LAST 30 DAYS: No - HPI Patient complains to provider of: Low blood pressure Notes: Patient coming in today for low blood pressure. Patient has a history of dementia lives at home with family according EMS notes upon arrival patient's blood pressure was found to be 70 systolic. According to family members patient has not had any changes in her condition in the last 24 hours until the day when the granddaughter noticed that the patient started snoring states that she could not arouse the patient that the patient would like she was not breathing and that the granddaughter could not feel a pulse. Said this lasted for approximately 10 minutes according EMS notes patient was arousable upon their arrival however did have a low blood pressure. Patient does have a history of dementia and altered mental status syncope episodes in the past according to past medical records. Patient has not had any changes to her medications according to family over the last 2 weeks. No recent travel no recent antibiotics. Patient does have a history of UTIs in the past causing encephalopathy. Patient is very alert pleasant upon my evaluation patient has no complaints at this time - Related Data Allergies/Adverse Reactions: TOBIN Inhibitors Allergy (Verified 01/09/18 12:11) Past Medical History - Social History Smoking Status: Never Smoker Family History: DM, Hypertension Patient has suicidal ideation: No Patient has homicidal ideation: No - Past Medical History Cardiac Medical History: Reports: Hx Hypercholesterolemia, Hx Hypertension - not medicated Endocrine Medical History: Reports: Hx Diabetes Mellitus Type 2 Renal/ Medical History: Denies: Hx Peritoneal Dialysis Musculoskeltal Medical History: Reports Hx Arthritis - osteo Psychiatric Medical History: Reports: Hx Dementia Denies: Hx Depression Past Surgical History: Reports: Hx Cholecystectomy Physical Exam - Vital signs Interpretation: Normal - General General appearance: Appears well, Alert - HEENT Head: Normocephalic, Atraumatic Eyes: Normal Pupils: PERRL - Respiratory Respiratory status: No respiratory distress Chest status: Nontender Breath sounds: Normal Chest palpation: Normal - Cardiovascular Rhythm: Regular Heart sounds: Normal auscultation Murmur: No - Abdominal Inspection: Normal Distension: No distension Bowel sounds: Normal Tenderness: Nontender Organomegaly: No organomegaly - Back Back: Normal, Nontender - Extremities General upper extremity: Normal inspection, Nontender, Normal color, Normal ROM , Normal temperature General lower extremity: Normal inspection, Nontender, Normal color, Normal ROM , Normal temperature, Normal weight bearing. No: Johanne's sign - Neurological Neuro grossly intact: Yes Cognition: Confused - Baseline for patient according to family members Tika Coma Scale Eye Opening: Spontaneous Tika Coma Scale Motor: Obeys Commands Speech: Normal Motor strength normal: LUE, RUE, LLE, RLE Sensory: Normal - Psychological Associated symptoms: Normal affect, Normal mood - Skin Skin Temperature: Warm Skin Moisture: Dry Skin Color: Normal Course - Re-evaluation Re-evalutation: 01/09/18 16:12 Laboratory studies on reveal a slight leukocytosis however no signs of infection seen on CT scan chest x-ray or urinalysis. An concern that the patient did have a transient episode of hypotension. Reviewing patient's past medical history does review sinus symptoms possible TIAs in the past along with syncopal episode encephalopathy brought on by UTI. Patient has been monitored no signs of hypotension no signs of cardiac arrhythmias possibility patient may have had a syncopal episode did recommend to the family members at this time because of her hypotension and possibility of syncopal episode admission for observation and telemetry to rule out cardiac arrhythmias. Did discuss with hospitalist agreed this time. - Laboratory Result Diagrams: 01/09/18 12:45 01/09/18 12:45 Laboratory results interpreted by me: 01/09/18 01/09/18 01/09/18 12:45 12:45 13:01 WBC 13.4 H MCH 26.7 L RDW 24.7 H Seg Neutrophils % 88.1 H Lymphocytes % 7.3 L Absolute Neutrophils 11.8 H Creatine Kinase 27 L Urine Protein 30 H Discharge - Discharge Clinical Impression: Dementia, Transient hypotension, Syncope Condition: Good Disposition: ADMITTED OBSERVATION Admitting Provider: Hospitalist - may Unit Admitted: Telemetry Referrals: RASHAWN MALIK MD [Primary Care Provider] - Follow up as needed
[2018-01-09] MEDS ORDERED: (PENDING PHARMACY ID) (Memantine Hcl/Donepezil Hcl [Namzaric 28 Mg-10 Mg Capsule] 1 CAP) PO SCH (17:00)
[2018-01-09] MEDS: CYANOCOBALAMIN (VITAMIN B-12) 1,000 MCG TABLET PO SCH (17:09)
[2018-01-09] MEDS: FERROUS SULFATE 325 MG TABLET PO SCH (17:09)
[2018-01-09] MEDS: QUETIAPINE FUMARATE 25 MG TABLET PO SCH (17:10)
[2018-01-09] MEDS: LOSARTAN POTASSIUM 25 MG TABLET PO SCH (17:12)
[2018-01-09] MEDS: DOCUSATE SODIUM 100 MG CAPSULE PO PRN (17:13)
[2018-01-09] MEDS: ASPIRIN 81 MG TABLET, CHEWABLE PO SCH (17:13)
[2018-01-09] MEDS ORDERED: (PENDING PHARMACY ID) (Calcium Carbonate/Vitamin D3 [Calcium 600 + Vit D Tablet] 1 TAB) PO SCH (18:00)
[2018-01-09] MEDS ORDERED: CABERGOLINE PO SCH (18:00)
[2018-01-09] MEDS: CALCIUM CARBONATE 250 MG/VITAMIN D3 125 UNIT TABLET PO SCH (18:17)
[2018-01-09] MEDS: LACTOBACILLUS ACIDOPHILUS 250 MG TAB PO SCH (18:17)
[2018-01-09] MEDS: CEPHALEXIN 250 MG CAPSULE PO SCH (18:17)
[2018-01-09 19:58] LABS: CREATINE KINASE MB 0.67 ng/mL (<4.55)
[2018-01-09 20:01] LABS: TROPONIN I < 0.012 ng/mL
[2018-01-09] MEDS ORDERED: MEMANTINE PO ONE (21:00)
[2018-01-09] MEDS ORDERED: DONEPEZIL PO ONE (21:00)
[2018-01-09] MEDS ORDERED: CABERGOLINE 0.5 MG PO ONE (21:00)
--- NOTE | 2018-01-09 22:12 | EKG REPORT ---
SEVERITY:- ABNORMAL ECG - SINUS RHYTHM NONSPECIFIC INTRAVENTRICULAR CONDUCTION DELAY LEFT VENTRICULAR HYPERTROPHY : Confirmed by: Rosetta Mack MD 09-Jan-2018 22:10:29
[2018-01-10] MEDS ORDERED: CEPHALEXIN 250 MG CAPSULE ONE (01:41)
[2018-01-10 01:51] LABS: CREATINE KINASE MB 0.69 ng/mL (<4.55)
[2018-01-10 01:59] LABS: TROPONIN I < 0.012 ng/mL
[2018-01-10] MEDS: CEPHALEXIN 250 MG CAPSULE PO SCH ×4 (06:18→18:24)
[2018-01-10 07:04] LABS: PHOSPHORUS 3.8 mg/dL (2.5-4.5)
[2018-01-10] MEDS: CALCIUM CARBONATE 250 MG/VITAMIN D3 125 UNIT TABLET PO SCH ×2 (10:17→18:19)
[2018-01-10] MEDS: LACTOBACILLUS ACIDOPHILUS 250 MG TAB PO SCH ×2 (10:17→18:23)
[2018-01-10] MEDS: ENOXAPARIN SODIUM INJ 40 MG/0.4 ML DISP.SYRIN SUBCUT SCH (10:18)
[2018-01-10] MEDS: QUETIAPINE FUMARATE 25 MG TABLET PO SCH ×2 (10:21→18:23)
[2018-01-10] MEDS: LOSARTAN POTASSIUM 25 MG TABLET PO SCH (18:20)
[2018-01-10] MEDS: CYANOCOBALAMIN (VITAMIN B-12) 1,000 MCG TABLET PO SCH (18:21)
[2018-01-10] MEDS: ASPIRIN 81 MG TABLET, CHEWABLE PO SCH (18:22)
[2018-01-10] MEDS: MEMANTINE PO SCH (18:25)
[2018-01-10] MEDS: DONEPEZIL PO SCH (18:25)
--- NOTE | 2018-01-10 18:44 | PDOC PROGRESS REPORT ---
Subjective Progress Note for:: 01/10/18 Subjective:: Patient with dementia and recurrent episodes of reduced responsiveness Echo and EEG pending. No complaints Reason For Visit: REDUCED RESPONSIVENESS,POSSIBLE SYNCOPE VS Physical Exam Vital Signs: Temp Pulse Resp BP Pulse Ox 98.7 F 75 16 121/70 98 01/10/18 15:16 01/10/18 15:16 01/10/18 15:16 01/10/18 15:16 01/10/18 15:16 Intake & Output 01/09/18 01/10/18 01/11/18 06:59 06:59 06:59 Intake Total 876 Balance 876 Weight 69.1 kg General appearance: PRESENT: no acute distress Ear exam: PRESENT: normal external ear exam Mouth exam: PRESENT: moist Respiratory exam: PRESENT: symmetrical, unlabored. ABSENT: wheezes Cardiovascular exam: PRESENT: RRR GI/Abdominal exam: PRESENT: normal bowel sounds, soft. ABSENT: tenderness Rectal exam: PRESENT: deferred Extremities exam: ABSENT: pedal edema Neurological exam: PRESENT: alert, awake Psychiatric exam: PRESENT: appropriate affect Results Laboratory Results: 01/10/18 01/10/18 06:20 06:20 Phosphorus 3.8 Magnesium 2.3 TSH 3.16 01/09/18 01/10/18 19:15 01:15 CK-MB (CK-2) 0.67 0.69 Troponin I < 0.012 < 0.012 Impressions: Chest X-Ray 01/09/18 11:40 IMPRESSION: NO ACUTE RADIOGRAPHIC FINDING IN THE CHEST. Head CT 01/09/18 11:59 IMPRESSION: MILD CHRONIC CHANGES OF ATROPHY AND MICROVASCULAR ISCHEMIA. NO ACUTE PROCESS. EVIDENCE OF ACUTE STROKE: NO. Assessment & Plan - Diagnosis (1) Syncope and collapse Is this a current diagnosis for this admission?: Yes Plan: Monitor on tele. Check Echo Check EEG to r/o seizures. (2) Hypotension Is this a current diagnosis for this admission?: Yes Plan: Resolved with IV fluid hydration. Continue to monitor and restart Losartan as tolerated (3) Pituitary tumor Is this a current diagnosis for this admission?: Yes Plan: Continue Cabergoline (4) Dementia Is this a current diagnosis for this admission?: Yes Plan: Continue Memantine and Aricept (5) DVT prophylaxis Is this a current diagnosis for this admission?: Yes Plan: S/C Lovenox - Time Time Spent with patient: 25-34 minutes
[2018-01-10] MEDS: FERROUS SULFATE 325 MG TABLET PO SCH (20:30)
[2018-01-11] MEDS: CEPHALEXIN 250 MG CAPSULE PO SCH ×4 (00:43→17:14)
[2018-01-11] MEDS: QUETIAPINE FUMARATE 25 MG TABLET PO SCH ×2 (08:45→17:10)
--- NOTE | 2018-01-11 09:00 | EEG PRO FEE REPORT ---
EEG INTERPRETATION PATIENT NAME: SCARLETT CHAUDHARI ROOM#: [id number] ORDER#: [id number] DATE OF STUDY: 01/10/2018 : 1935 REFERRING MD: JUANY MARIEE M.D. Current MEDICATIONS Ferrous sulfate, Bacid, Cozaar, Zofran, Namzaric, Cabergoline, Aspirin, Calcium Carbonate, Keflex, Vitamin B12, Seroquel History This is an 82 year old right handed woman with a history of hypertension, pituitary tumor, type II diabetes, Alzheimer's dementia, and episodes of "passing out" for 30 years that are getting worse. This EEG was requested for possible seizures. EEG Interpretation This EEG was recorded in the awake and drowsy state. The awake EEG is characterized by a fairly well organized background with a briefly noted reactive posterior dominant rhythm of 9 Hz. The remainder of the background is made up of primarily alpha with some theta. There was intermittent polymorphic delta slowing in the right > left temporal regions. However there was significant artifact (left more than right electrodes) impairing interpretation. Drowsiness is characterized by slowing of the background rhythms. Photic stimulation resulted in no significant changes. There is frontal muscle artifact impairing interpretation of those channels. There is no definite epileptiform abnormalities noted. EEG Classification 1. Technically poor study impairing interpretation 2. Intermittent polymorphic delta slowing right > left temporal regions (visibility impaired due to artifact) 3. Theta slowing of the background EEG Impression This EEG is technically poor impairing interpretation. If clinically indicated a further study should be obtained. INTERPRETING PHYSICIAN: ETHAN LAWLER M.D. /: MTEFALIRIO TT: [id number] ID: [id number] /: [id number] TD: [id number] JOB: [id number] cc:Dennys CANO M.D. > MTDD
[2018-01-11] MEDS: ENOXAPARIN SODIUM INJ 40 MG/0.4 ML DISP.SYRIN SUBCUT SCH (09:49)
[2018-01-11] MEDS: CALCIUM CARBONATE 250 MG/VITAMIN D3 125 UNIT TABLET PO SCH ×2 (09:50→17:14)
[2018-01-11] MEDS: LACTOBACILLUS ACIDOPHILUS 250 MG TAB PO SCH ×2 (09:50→17:13)
[2018-01-11] MEDS: LOSARTAN POTASSIUM 25 MG TABLET PO SCH (17:10)
[2018-01-11] MEDS: CYANOCOBALAMIN (VITAMIN B-12) 1,000 MCG TABLET PO SCH (17:10)
[2018-01-11] MEDS: DONEPEZIL PO SCH (17:10)
[2018-01-11] MEDS: ASPIRIN 81 MG TABLET, CHEWABLE PO SCH (17:10)
[2018-01-11] MEDS: MEMANTINE PO SCH (17:10)
[2018-01-11] MEDS: DOCUSATE SODIUM 100 MG CAPSULE PO PRN (18:24)
[2018-01-11] MEDS: FERROUS SULFATE 325 MG TABLET PO SCH (18:24)
--- NOTE | 2018-01-11 18:52 | PDOC PROGRESS REPORT ---
Subjective Progress Note for:: 01/11/18 Subjective:: Patient seen resting in bed. Her daughter is at the bedside. She is awake and alert. She does not specifically answer questions she looks to her daughter for answers. Daughter states this is her baseline. Review of systems are on obtainable due to her mentation. Daughter states she has been eating and drinking well and acting like she does at home. Nursing report no issues overnight. Reason For Visit: REDUCED RESPONSIVENESS,POSSIBLE SYNCOPE VS Physical Exam Vital Signs: Temp Pulse Resp BP Pulse Ox 98.5 F 77 16 137/65 H 96 01/11/18 15:51 01/11/18 15:51 01/11/18 15:51 01/11/18 15:51 01/11/18 15:51 Intake & Output 01/10/18 01/11/18 01/12/18 06:59 06:59 06:59 Intake Total 876 860 540 Balance 876 860 540 Weight 69.1 kg 60.2 kg General appearance: PRESENT: no acute distress, thin, well-developed, well- nourished Head exam: PRESENT: atraumatic, normocephalic Eye exam: PRESENT: conjunctiva pink, EOMI, PERRLA. ABSENT: scleral icterus Ear exam: PRESENT: normal external ear exam Mouth exam: PRESENT: moist, tongue midline Neck exam: ABSENT: carotid bruit, JVD, lymphadenopathy, thyromegaly Respiratory exam: PRESENT: clear to auscultation maren. ABSENT: rales, rhonchi, wheezes Cardiovascular exam: PRESENT: RRR, +S1, +S2 Pulses: PRESENT: normal carotid pulses, normal radial pulses, normal dorsalis pedis pul Vascular exam: PRESENT: normal capillary refill GI/Abdominal exam: PRESENT: normal bowel sounds, soft. ABSENT: distended, guarding, mass, organolmegaly, rebound, tenderness Rectal exam: PRESENT: deferred Extremities exam: PRESENT: full ROM. ABSENT: calf tenderness, clubbing, pedal edema Musculoskeletal exam: PRESENT: ambulatory, full ROM, normal inspection Neurological exam: PRESENT: alert, altered, awake, oriented to person, CN II- XII grossly intact, other - He does occasionally answer yes or no but looks to her daughter or granddaughter for guidance. ABSENT: motor sensory deficit Psychiatric exam: PRESENT: flat affect Skin exam: PRESENT: dry, intact, warm. ABSENT: cyanosis, rash Results Laboratory Results: 01/09/18 01/10/18 19:15 01:15 CK-MB (CK-2) 0.67 0.69 Troponin I < 0.012 < 0.012 Impressions: Chest X-Ray 01/09/18 11:40 IMPRESSION: NO ACUTE RADIOGRAPHIC FINDING IN THE CHEST. Head CT 01/09/18 11:59 IMPRESSION: MILD CHRONIC CHANGES OF ATROPHY AND MICROVASCULAR ISCHEMIA. NO ACUTE PROCESS. EVIDENCE OF ACUTE STROKE: NO. Assessment & Plan - Diagnosis (1) Syncope and collapse Is this a current diagnosis for this admission?: Yes Plan: EEG showed no signs of any seizure disorder. Awaiting echo results and then she can be discharged. (2) Dementia Qualifiers: Dementia behavioral disturbance: without behavioral disturbance Is this a current diagnosis for this admission?: Yes Plan: Patient lives with her daughter and granddaughter. They are looking to place her in some respite care in the future. senior web services developer is assisting with this. (3) Pituitary tumor Is this a current diagnosis for this admission?: Yes Plan: Patient has a pituitary adenomas chronic. (4) Transient hypotension Is this a current diagnosis for this admission?: Yes Plan: Most likely secondary to dehydration from poor oral or oral intake. This resolved with IV hydration. (5) Hypertension Qualifiers: Hypertension type: essential hypertension Qualified Code(s): I10 - Essential (primary) hypertension Is this a current diagnosis for this admission?: Yes Plan: Continue losartan - Time Time Spent with patient: 25-34 minutes Total Critical Time (Minutes): 20 Medications reviewed and adjusted accordingly: Yes Within: within 24 hours
[2018-01-12] MEDS: CEPHALEXIN 250 MG CAPSULE PO SCH ×3 (00:30→12:15)
[2018-01-12] MEDS: QUETIAPINE FUMARATE 25 MG TABLET PO SCH (08:11)
[2018-01-12] MEDS: LACTOBACILLUS ACIDOPHILUS 250 MG TAB PO SCH (09:29)
[2018-01-12] MEDS: CALCIUM CARBONATE 250 MG/VITAMIN D3 125 UNIT TABLET PO SCH (09:29)
[2018-01-12] MEDS: ENOXAPARIN SODIUM INJ 40 MG/0.4 ML DISP.SYRIN SUBCUT SCH (09:29)
--- NOTE | 2018-01-12 16:18 | PDOC DISCHARGE SUMMARY ---
General - Admit/Disc Date/PCP Admission Date/Primary Care Provider: 01/09/18 16:25 RASHAWN MALIK MD Discharge Date: 01/12/18 - Discharge Diagnosis (1) Syncope and collapse Is this a current diagnosis for this admission?: Yes (2) Transient hypotension Is this a current diagnosis for this admission?: Yes (3) Dementia Is this a current diagnosis for this admission?: Yes (5) Pituitary tumor Is this a current diagnosis for this admission?: Yes - Additional Information Resuscitation Status: Full Code Home Medications: Aspirin [Aspirin 81 mg Chewable Tablet] 81 mg PO WSUPPER 01/09/18 Cabergoline [Cabergoline 0.5 mg Tablet] 0.5 mg PO TUFR@1000 01/09/18 Calcium Carbonate/Vitamin D3 [Calcium 600 + Vit D Tablet] 1 tab PO BID 01/09/18 Cyanocobalamin (Vitamin B-12) [Vitamin B-12] 2,000 mcg PO WSUPPER 01/09/18 Docusate Sodium [Colace 100 mg Capsule] 100 mg PO DAILY@1500 01/09/18 Ferrous Sulfate [Feosol 325 mg Tablet] 325 mg PO DAILY@1500 01/09/18 Memantine HCl/Donepezil HCl [Namzaric 28 mg-10 mg Capsule] 1 cap PO WSUPPER 12/22 Quetiapine Fumarate [Seroquel] 50 mg PO BIDACBS 01/09/18 History of Present Illness History of Present Illness: Patient was admitted after she presented passing HPI below: "SCARLETT CHAUDHARI is a 82 year old female with past medical history of Dementia Hypertension Suspected TIA Pituitary tumor Recurrent syncope who was brought in by her family for reduced responsiveness and apparent significant hypotension. Patient has recurrent admissions for hypotensive episodes. She was admitted to hospitalist service and managed as an assessment and plan below. Echo and EEG were ordered as part of the diagnostic workup. Assessment/plan: (1) Syncope and collapse Is this a current diagnosis for this admission?: Yes Plan: EEG showed no signs of any seizure disorder. Echo revealed no thrombosis or other significant abnormalities. -Daughter told me patient had episodes where her blood pressure will be so low when they check it at the drugstore. He takes losartan 25 mg daily and we have decided to stop thing in case it is causing recurrent syncope. Patient to monitor her blood pressures and follow up with her PCP. (2) Dementia Qualifiers: Dementia behavioral disturbance: without behavioral disturbance Is this a current diagnosis for this admission?: Yes Plan: Patient lives with her daughter and granddaughter. Daughter states being able to resume care outpatient. (3) Pituitary tumor Is this a current diagnosis for this admission?: Yes Plan: Patient has a pituitary adenomas, chronic. (4) hypotensive episode, may be recurrence Is this a current diagnosis for this admission?: Yes Plan: Trial of stopping blood pressure medication for now to see if this helps with recurrent syncope. Patient to follow-up with PCP and to monitor her blood pressure. (5) Hypertension Qualifiers: Hypertension type: essential hypertension Qualified Code(s): I10 - Essential (primary) hypertension Is this a current diagnosis for this admission?: Yes Plan: Hold losartan as previously stated. Physical Exam Vital Signs: Temp Pulse Resp BP Pulse Ox 98.1 F 94 16 121/63 94 01/12/18 11:35 01/12/18 14:00 01/12/18 11:35 01/12/18 11:35 01/12/18 11:35 Intake & Output 01/11/18 01/12/18 01/13/18 06:59 06:59 06:59 Intake Total 860 770 Balance 860 770 Weight 60.2 kg 60.5 kg General appearance: PRESENT: no acute distress, thin, well-developed, well- nourished Head exam: PRESENT: atraumatic, normocephalic Eye exam: PRESENT: conjunctiva pink, EOMI, PERRLA. ABSENT: scleral icterus Ear exam: PRESENT: normal external ear exam Mouth exam: PRESENT: moist, tongue midline Neck exam: ABSENT: carotid bruit, JVD, lymphadenopathy, thyromegaly Respiratory exam: PRESENT: clear to auscultation maren. ABSENT: rales, rhonchi, wheezes Cardiovascular exam: PRESENT: RRR, +S1, +S2 Pulses: PRESENT: normal carotid pulses, normal radial pulses, normal dorsalis pedis pul Vascular exam: PRESENT: normal capillary refill GI/Abdominal exam: PRESENT: normal bowel sounds, soft. ABSENT: distended, guarding, mass, organolmegaly, rebound, tenderness Extremities exam: PRESENT: full ROM. ABSENT: calf tenderness, clubbing, pedal edema Musculoskeletal exam: PRESENT: ambulatory, full ROM, normal inspection Neurological exam: PRESENT: alert, altered, awake, oriented to person, CN II- XII grossly intact. ABSENT: motor sensory deficit Psychiatric exam: PRESENT: flat affect Skin exam: PRESENT: dry, intact, warm. ABSENT: cyanosis, rash Results Laboratory Results: 01/09/18 01/10/18 19:15 01:15 CK-MB (CK-2) 0.67 0.69 Troponin I < 0.012 < 0.012 Impressions: Chest X-Ray 01/09/18 11:40 IMPRESSION: NO ACUTE RADIOGRAPHIC FINDING IN THE CHEST. Head CT 01/09/18 11:59 IMPRESSION: MILD CHRONIC CHANGES OF ATROPHY AND MICROVASCULAR ISCHEMIA. NO ACUTE PROCESS. EVIDENCE OF ACUTE STROKE: NO. Qualifiers - * PATIENT BEING DISCHARGED WITH ANY OF THE FOLLOWING DIAGNOSIS: No Plan Discharge Plan: D/c losartan
[2018-01-12 16:30] VITALS: BP 131/64
[2018-01-12] MEDS ORDERED: CABERGOLINE 0.5 MG PO SCH (18:00)
== END 2018-01-12 17:00 | disposition home or self-care (01) ==
LOC: ER 11:33 → EH 16:25 → 5 18:36
PROVIDERS: ADMIT Internal Medicine; ATTEND Internal Medicine
DX: R55 Syncope and collapse (principal); I95.89 Other hypotension; G30.9 Alzheimer's disease, unspecified; F02.80 Dementia in other diseases classified elsewhere, unspecified severity, without behavioral disturbance, psychotic disturbance, mood disturbance, and anxiety; D35.2 Benign neoplasm of pituitary gland; M19.90 Unspecified osteoarthritis, unspecified site; I10 Essential (primary) hypertension; Z79.899 Other long term (current) drug therapy; Z79.82 Long term (current) use of aspirin; Z90.49 Acquired absence of other specified parts of digestive tract; Z82.49 Family history of ischemic heart disease and other diseases of the circulatory system; Z87.440 Personal history of urinary (tract) infections; Z83.3 Family history of diabetes mellitus
CPT/HCPCS: 95819 ×2; 93005; 99285; 36415 ×2; 82553 ×2; 82550; 83735 ×2; 84100; 84443; 85025; 85610; 80053; 81001; 84484 ×2; 93306; 71045; 70450; 93010; 97110; 97116; 97162; G0378 ×5; A9270 ×27; J1650 ×3; J3490 ×3; G8978; G8979; G8980

== ENCOUNTER 2018-06-11 09:04 | Observation (INO) | payer MEDICARE, OTHER, MEDICAID ==
[2018-06-11] MEDS ORDERED: NORMAL SALINE 1000 ML 1,000 ML IV ONE (09:39)
--- NOTE | 2018-06-11 09:50 | ER Document Report ---
ED General - General Chief Complaint: Syncope Stated Complaint: POSSIBLE SYNCOPE Time Seen by Provider: 06/11/18 09:08 Information source: Relative Cannot obtain history due to: Dementia TRAVEL OUTSIDE OF THE [place] IN LAST 30 DAYS: No - HPI Patient complains to provider of: syncope and collapse Onset: Other - Note 82-year-old female that presents for evaluation of syncope at home today. She has prominent dementia and has had multiple episodes in the past of syncope with an unknown etiology. She has been evaluated multiple times wearing a Holter and having her blood pressure medication adjusted without any true change in the frequency of symptoms. No arrhythmias have been identified though she is never had a Holter on during an event. Today she had an episode in which she was unresponsive and stopped breathing for several minutes according to her daughter at which time she slowly woke up thereafter and began to breathe but was confused more than usual speaking quietly. Deny recent injury, falls, fevers chills rashes or other symptoms leading up to this event. At this time she is currently at her baseline according to her daughter. - Related Data Allergies/Adverse Reactions: TOBIN Inhibitors Allergy (Verified 06/11/18 12:51) Past Medical History - General Information source: Relative Cannot obtain history due to: Dementia - Social History Smoking Status: Never Smoker Chew tobacco use (# tins/day): No Frequency of alcohol use: None Drug Abuse: None Family History: DM, Hypertension Patient has suicidal ideation: No Patient has homicidal ideation: No - Past Medical History Cardiac Medical History: Reports: Hx Hypercholesterolemia, Hx Hypertension Endocrine Medical History: Reports: Hx Diabetes Mellitus Type 2 Renal/ Medical History: Denies: Hx Peritoneal Dialysis Musculoskeletal Medical History: Reports Hx Arthritis - osteo Psychiatric Medical History: Reports: Hx Dementia Denies: Hx Depression Past Surgical History: Reports: Hx Cholecystectomy, Hx Gynecologic Surgery - uterine sling - Immunizations Hx Pneumococcal Vaccination: 08/07/14 Review of Systems - Review of Systems -: Yes All other systems reviewed and negative Physical Exam - Vital signs Vitals: Temp Resp BP Pulse Ox 97.9 F 17 137/57 H 94 06/11/18 09:13 06/11/18 09:13 06/11/18 09:13 06/11/18 09:13 - General General appearance: Appears well In distress: None - HEENT Head: Normocephalic Eyes: Normal Conjunctiva: Normal Cornea: Normal Extraocular movements intact: Yes Eyelashes: Normal Pupils: PERRL - Respiratory Respiratory status: No respiratory distress Chest status: Nontender Breath sounds: Normal Chest palpation: Normal - Cardiovascular Rhythm: Regular Heart sounds: Normal auscultation Murmur: No - Abdominal Inspection: Normal Distension: No distension Tenderness: Nontender - Back Back: Normal - Extremities General upper extremity: Normal inspection, Nontender, Normal ROM, Normal strength General lower extremity: Normal inspection, Nontender, Normal ROM, Normal strength - Neurological Neuro grossly intact: No Cognition: Confused, Short term memory loss Orientation: Disoriented to place, Disoriented to time, Disoriented to events [place] Coma Scale Eye Opening: Spontaneous Tika Coma Scale Verbal: Oriented [place] Coma Scale Motor: Obeys Commands Tika Coma Scale Total: 15 Speech: Normal Motor strength normal: LUE, RUE, LLE, RLE - Psychological Associated symptoms: Flat affect Course - Re-evaluation Re-evalutation: 06/11/18 09:49 Here is an 82-year-old female with dementia that presents after an episode of unresponsiveness in which she was not breathing. This lasted several minutes, she did turn blue during that time, woke up slowly thereafter. 06/11/18 21:09 Patient with a negative initial workup, troponins negative labs are negative urine is negative chest x-ray is unremarkable patient does not have an obvious source for her likely syncope. Given the historical features however I have the extreme concern that this may represent a cardiac arrhythmia or near cardiac arrest. Because of the concern I have for this I believe this patient should undergo observation and further investigation. I did speak to her daughter at some length about end-of-life goals and CODE STATUS. Currently she thinks that her mother should be a full code. At the time of admission this patient was hemodynamically stable and remained well-appearing. - Vital Signs Vital signs: Temp Pulse Resp BP Pulse Ox 98.2 F 63 16 144/50 H 95 06/11/18 20:22 06/11/18 20:22 06/11/18 20:22 06/11/18 20:22 06/11/18 20:22 - Laboratory Result Diagrams: 06/11/18 10:00 06/11/18 10:00 Laboratory results interpreted by me: 06/11/18 06/11/18 10:00 10:00 RDW 14.4 H Chloride 110 H Glucose 67 L Calcium 7.6 L Total Protein 5.4 L Albumin 2.8 L Discharge - Discharge Clinical Impression: Syncope Qualifiers: Syncope type: unspecified Qualified Code(s): R55 - Syncope and collapse Condition: Stable Disposition: ADMITTED INPATIENT Admitting Provider: Hospitalist Unit Admitted: Telemetry
--- NOTE | 2018-06-11 10:15 | RADIOLOGY REPORT (SQ) ---
EXAM DESCRIPTION: CHEST SINGLE VIEW COMPLETED DATE/TIME: 06/11/2018 9:49 am REASON FOR STUDY: syncope COMPARISON: 04/10/2016. EXAM PARAMETERS: NUMBER OF VIEWS: One view. TECHNIQUE: Single frontal radiographic view of the chest acquired. RADIATION DOSE: NA LIMITATIONS: None. FINDINGS: LUNGS AND PLEURA: No opacities, masses or pneumothorax. No pleural effusion. MEDIASTINUM AND HILAR STRUCTURES: No masses. Contour normal. HEART AND VASCULAR STRUCTURES: Heart normal in size. Normal vasculature. BONES: No acute findings. HARDWARE: None in the chest. OTHER: No other significant finding. IMPRESSION: NO ACUTE RADIOGRAPHIC FINDING IN THE CHEST. TECHNICAL DOCUMENTATION: JOB ID: [id number] [employer]- All Rights Reserved Reading location - IP/workstation name: [email or web address]
[2018-06-11 10:17] LABS: ABSOLUTE EOSINOPHILS # (AUTO) 0.2 10^3/uL (0.0-0.6); ABSOLUTE LYMPHOCYTES (AUTO) 1.2 10^3/uL (0.5-4.7); ABSOLUTE MONOCYTES (AUTO) 0.6 10^3/uL (0.1-1.4); BASOPHILS % (AUTO) 0.5 % (0-2); EOSINOPHILS % (AUTO) 2.3 % (0-6); HEMATOCRIT 38.9 % (36.0-47.0); HEMOGLOBIN 13.6 g/dL (12.0-15.5); MEAN CORPUSCULAR HEMOGLOBIN 32.7 pg (27.0-33.4); MEAN CORPUSCULAR HGB CONC 35.1 g/dL (32.0-36.0); MEAN CORPUSCULAR VOLUME 93 fl (80-97); MONOCYTES % (AUTO) 6.6 % (3-13); PLATELET COUNT 163 10^3/uL (150-450); RED BLOOD COUNT 4.17 10^6/uL (3.72-5.28); RED CELL DISTRIBUTION WIDTH 14.4 % (11.5-14.0); SEGMENTED NEUTROPHILS % (AUTO) 77.6 % (42-78); TOTAL CELLS COUNTED % (AUTO) 100 %
[2018-06-11 10:41] LABS: ALANINE AMINOTRANSFERASE 24 U/L (9-52); ALBUMIN 2.8 g/dL (3.5-5.0); ALKALINE PHOSPHATASE 57 U/L (38-126); ANION GAP 9 (5-19); ASPARTATE AMINO TRANSFERASE 26 U/L (14-36); BILIRUBIN,TOTAL 0.5 mg/dL (0.2-1.3); BLOOD UREA NITROGEN 15 mg/dL (7-20); CALCIUM 7.6 mg/dL (8.4-10.2); CARBON DIOXIDE 25 mmol/L (22-30); CHLORIDE 110 mmol/L (98-107); GLUCOSE 67 mg/dL (75-110); LIPASE 67.9 U/L (23-300); POTASSIUM 3.8 mmol/L (3.6-5.0); SODIUM 143.8 mmol/L (137-145); TOTAL PROTEIN 5.4 g/dL (6.3-8.2)
[2018-06-11 10:57] LABS: CREATINE KINASE MB 0.37 ng/mL (<4.55); NT PRO BNP 336 pg/mL (<450)
[2018-06-11 10:58] LABS: TROPONIN I < 0.012 ng/mL
[2018-06-11 11:02] LABS: AMORPHOUS SEDIMENT,URINE 1+ /HPF; APPEARANCE,URINE CLOUDY; BILIRUBIN,URINE NEGATIVE (NEGATIVE); CALCIUM OXALATE CRYSTALS,URINE FEW /HPF; COLOR,URINE YELLOW; GLUCOSE, URINE NEGATIVE (NEGATIVE); KETONES,URINE NEGATIVE (NEGATIVE); LEUKOCYTE ESTERASE,URINE NEGATIVE (NEGATIVE); NITRITE,URINE NEGATIVE (NEGATIVE); PROTEIN,URINE NEGATIVE (NEGATIVE); URINE SPECIFIC GRAVITY 1.012; UROBILINOGEN,URINE NEGATIVE mg/dL (<2.0)
[2018-06-11] MEDS ORDERED: IPRATROPIUM/ALBUTEROL 0.5-2.5 MG/3 ML AMPUL NEB PRN (12:53)
[2018-06-11] MEDS ORDERED: ACETAMINOPHEN 325 MG TABLET PO PRN (12:53)
--- NOTE | 2018-06-11 13:19 | EKG REPORT ---
SEVERITY:- ABNORMAL ECG - SINUS RHYTHM NONSPECIFIC INTRAVENTRICULAR CONDUCTION DELAY LEFT VENTRICULAR HYPERTROPHY : Confirmed by: Derek Ewing MD 11-Jun-2018 13:19:14
[2018-06-11] MEDS ORDERED: (PENDING PHARMACY ID) (Quetiapine Fumarate [Seroquel] 50 MG) PO SCH (16:00)
[2018-06-11] MEDS: ASPIRIN 81 MG TABLET, CHEWABLE PO SCH (16:55)
[2018-06-11] MEDS: DOCUSATE SODIUM 100 MG CAPSULE PO SCH (16:55)
[2018-06-11] MEDS: CYANOCOBALAMIN (VITAMIN B-12) 1,000 MCG TABLET PO SCH (16:55)
[2018-06-11] MEDS: CALCIUM CARBONATE 250 MG/VITAMIN D3 125 UNIT TABLET PO SCH (16:55)
[2018-06-11] MEDS: QUETIAPINE FUMARATE 25 MG TABLET PO SCH (16:56)
[2018-06-11] MEDS: FERROUS SULFATE 325 MG TABLET PO SCH ×2 (16:56→19:22)
[2018-06-11] MEDS ORDERED: (PENDING PHARMACY ID) (Memantine Hcl/Donepezil Hcl [Namzaric 28 Mg-10 Mg Capsule] 1 CAP) PO SCH (17:00)
[2018-06-11] MEDS: METOPROLOL SUCCINATE 25 MG TAB.SR.24H PO SCH (17:08)
[2018-06-11] MEDS ORDERED: (PENDING PHARMACY ID) (Calcium Carbonate/Vitamin D3 [Calcium 600 + Vit D Tablet] 1 TAB) PO SCH (18:00)
[2018-06-11] MEDS: GUAIFENESIN 600 MG TABLET.SA PO SCH (21:53)
[2018-06-11] MEDS: FAMOTIDINE 20 MG TABLET PO SCH (21:54)
[2018-06-11] MEDS: DONEPEZIL HCL PO SCH (22:24)
[2018-06-11] MEDS: MEMANTINE HCL PO SCH (22:24)
[2018-06-12 05:47] LABS: ABSOLUTE EOSINOPHILS # (AUTO) 0.3 10^3/uL (0.0-0.6); ABSOLUTE LYMPHOCYTES (AUTO) 1.6 10^3/uL (0.5-4.7); ABSOLUTE MONOCYTES (AUTO) 0.7 10^3/uL (0.1-1.4); ABSOLUTE NEUT (AUTO) 5.6 10^3/uL (1.7-8.2); BASOPHILS % (AUTO) 0.4 % (0-2); EOSINOPHILS % (AUTO) 3.8 % (0-6); HEMATOCRIT 36.9 % (36.0-47.0); HEMOGLOBIN 12.8 g/dL (12.0-15.5); LYMPHOCYTES % (AUTO) 19.4 % (13-45); MEAN CORPUSCULAR HEMOGLOBIN 32.5 pg (27.0-33.4); MEAN CORPUSCULAR HGB CONC 34.7 g/dL (32.0-36.0); MEAN CORPUSCULAR VOLUME 94 fl (80-97); PLATELET COUNT 159 10^3/uL (150-450); RED BLOOD COUNT 3.94 10^6/uL (3.72-5.28); SEGMENTED NEUTROPHILS % (AUTO) 67.4 % (42-78); TOTAL CELLS COUNTED % (AUTO) 100 %; WHITE BLOOD COUNT 8.3 10^3/uL (4.0-10.5)
[2018-06-12 06:19] LABS: ALANINE AMINOTRANSFERASE 22 U/L (9-52); ALBUMIN 3.1 g/dL (3.5-5.0); ALKALINE PHOSPHATASE 75 U/L (38-126); ANION GAP 8 (5-19); ASPARTATE AMINO TRANSFERASE 27 U/L (14-36); BILIRUBIN,DIRECT 0.2 mg/dL (0.0-0.4); BILIRUBIN,TOTAL 0.7 mg/dL (0.2-1.3); BLOOD UREA NITROGEN 12 mg/dL (7-20); CALCIUM 8.9 mg/dL (8.4-10.2); CARBON DIOXIDE 26 mmol/L (22-30); CHLORIDE 109 mmol/L (98-107); GLUCOSE 80 mg/dL (75-110); POTASSIUM 4.1 mmol/L (3.6-5.0); SODIUM 143.4 mmol/L (137-145); TOTAL PROTEIN 5.7 g/dL (6.3-8.2)
--- NOTE | 2018-06-12 09:20 | PDOC H&P ---
History of Present Illness Admission Date/PCP: 06/11/18 12:00 JONATHAN HIGGINS MD Patient complains of: Syncope History of Present Illness: SCARLETT CHAUDHARI is a 82 year old female past medical history of advanced dementia, hypertension and dyslipidemia. Patient was brought in from [facility] after she became unresponsive for 10 minutes. As per daughter who is her primary caregiver was reported to her by the [facility] does not she was doing fine and suddenly became unresponsive on was not responding to sternal rubs. No pulse, blood pressure or glucose were checked at the [facility]. It was reported that patient did not have any trauma due to the unresponsive episode. By the time EMS got to the [facility] patient had recovered she was brought to ED. Workup in ED was negative to explain the recent episode in the hospital was consulted for admission. Has had several admission here at [facility] for similar unresponsiveness. As per daughter she has had 4 episodes within the last year. Patient has had extensive workup here at [facility] and as outpatient and no cause has been identified. As per daughter patient was evaluated with a Holter monitor outpatient which was negative as well as workup to rule out any episodic hypoglycemia which was also negative. Last admission here at [facility] was on 01/12/2018. Patient was admitted to telemetry , and 2D echo, EEG, brain MRI and CT head were inconclusive and finding a cause for her recurrent syncopes. On my encounter patient is comfortably sitting in her bed in no acute distress very pleasant and cooperative with physical examination. Unfortunately has severe dementia and is only oriented to her name and does not provide any detailed history about the reason that brought her here. Daughter who is in the room states patient is back to her baseline she has a very healthy appetite and she makes sure that she is not dehydrated. Patient denies any type of pain, fever, chills, nausea, vomiting, diarrhea, constipation, abdominal pain, headache, numbness, weakness or any urinary symptoms. Past Medical History Cardiac Medical History: Reports: Hyperlipidema, Hypertension Endocrine Medical History: Reports: Diabetes Mellitus Type 2 Musculoskeltal Medical History: Reports: Arthritis - osteo Psychiatric Medical History: Reports: Dementia Denies: Depression Past Surgical History Past Surgical History: Reports: Cholecystectomy Social History Smoking Status: Never Smoker Frequency of Alcohol Use: None Hx Recreational Drug Use: No Drugs: None Hx Prescription Drug Abuse: No Family History Family History: DM, Hypertension Parental Family History Reviewed: Yes Children Family History Reviewed: Yes Sibling(s) Family History Reviewed.: Yes Medication/Allergy Home Medications: Aspirin [Aspirin 81 mg Chewable Tablet] 81 mg PO WSUPPER 01/09/18 Cabergoline [Cabergoline 0.5 mg Tablet] 0.5 mg PO TUFR@1000 01/09/18 Calcium Carbonate/Vitamin D3 [Calcium 600 + Vit D Tablet] 1 tab PO BID 01/09/18 Cyanocobalamin (Vitamin B-12) [Vitamin B-12] 2,000 mcg PO WSUPPER 01/09/18 Docusate Sodium [Colace 100 mg Capsule] 100 mg PO DAILY@1500 01/09/18 Ferrous Sulfate [Feosol 325 mg Tablet] 325 mg PO DAILY@1500 01/09/18 Memantine HCl/Donepezil HCl [Namzaric 28 mg-10 mg Capsule] 1 cap PO WSUPPER 12/22 Quetiapine Fumarate [Seroquel] 50 mg PO BIDACBS 01/09/18 Metoprolol Succinate [Toprol Xl 25 mg Tab.sr] 25 mg PO QPM 06/11/18 Allergies/Adverse Reactions: TOBIN Inhibitors Allergy (Verified 06/11/18 12:51) Review of Systems Review of Systems: As per HPI Physical Exam Vital Signs: Temp Pulse Resp BP Pulse Ox 97.9 F 14 124/73 97 06/11/18 09:13 06/11/18 12:13 06/11/18 12:13 06/11/18 12:13 General appearance: PRESENT: no acute distress, well-developed, well-nourished Head exam: PRESENT: atraumatic, normocephalic Neck exam: ABSENT: carotid bruit, JVD, lymphadenopathy, thyromegaly Respiratory exam: PRESENT: clear to auscultation maren. ABSENT: rales, rhonchi, wheezes Cardiovascular exam: PRESENT: RRR. ABSENT: diastolic murmur, rubs, systolic murmur Pulses: PRESENT: normal dorsalis pedis pul Vascular exam: PRESENT: normal capillary refill GI/Abdominal exam: PRESENT: normal bowel sounds, soft. ABSENT: distended, guarding, mass, organolmegaly, rebound, tenderness Extremities exam: PRESENT: full ROM. ABSENT: calf tenderness, clubbing, pedal edema Neurological exam: PRESENT: alert, oriented to person, reflexes normal, CN II- XII grossly intact, normal gait. ABSENT: motor sensory deficit Skin exam: PRESENT: dry, intact, warm. ABSENT: cyanosis, rash Results Impressions: Chest X-Ray 06/11/18 09:40 IMPRESSION: NO ACUTE RADIOGRAPHIC FINDING IN THE CHEST. Assessment & Plan - Diagnosis (1) Syncope Qualifiers: Syncope type: unspecified Qualified Code(s): R55 - Syncope and collapse Is this a current diagnosis for this admission?: Yes Plan: Patient is back at baseline. as admitted here on 01/2018 MRI of head, CT of head, echo and EEG were unremarkable. Neurologically intact except for severe dementia. Vitals are stable. CBC, CMP, troponins, EKG, UA all within normal limits. Continue telemetry, Accu-Chek, monitor vitals. (2) Dementia Qualifiers: Dementia type: Alzheimer's disease Dementia behavioral disturbance: without behavioral disturbance Is this a current diagnosis for this admission?: Yes Plan: Advanced dementia. Restart home meds. Continue fall and seizure precautions. (3) Hypertension Qualifiers: Hypertension type: essential hypertension Qualified Code(s): I10 - Essential (primary) hypertension Is this a current diagnosis for this admission?: No Plan: Euvolemic, normotensive. Continue home meds. Monitor vitals adjust meds as needed.
--- NOTE | 2018-06-12 09:39 | Physician Advisory Note ---
Physician Advisor ProgressNote .: [facility], I have reviewed the medical record for this patient. Physician Advisor Statement: Pt w/recurrent syncope, consistently neg w/u's, here w/another episode - this time w/report unresponsive & turned blue x min.s. W/u so far again neg, except initial glc 67, & several additional glc levels 80s. Please consider documenting, if you agree: 1. "syncope, suspect most likely due to " [cardiac arrhythmia? near cardiac arrest? hypoglycemia? ...] 2. Medical necessity/status: Medicare pt appropriately Obs so far. Please document reasons explicitly if any clinical concerns/ongoing acute clinical issues prevent her from safe d/c today w/close f/u. Thanks! CK
[2018-06-12] MEDS: FAMOTIDINE 20 MG TABLET PO SCH ×2 (09:46→21:48)
[2018-06-12] MEDS: GUAIFENESIN 600 MG TABLET.SA PO SCH ×2 (09:47→21:48)
[2018-06-12] MEDS: ENOXAPARIN SODIUM INJ 40 MG/0.4 ML DISP.SYRIN SUBCUT SCH (09:49)
[2018-06-12] MEDS: CALCIUM CARBONATE 250 MG/VITAMIN D3 125 UNIT TABLET PO SCH ×2 (09:49→17:25)
[2018-06-12] MEDS: QUETIAPINE FUMARATE 25 MG TABLET PO SCH ×2 (09:49→17:25)
[2018-06-12] MEDS ORDERED: CABERGOLINE 0.5 MG PO SCH (10:00)
[2018-06-12] MEDS: DOCUSATE SODIUM 100 MG CAPSULE PO SCH (14:37)
[2018-06-12] MEDS: FERROUS SULFATE 325 MG TABLET PO SCH (14:37)
[2018-06-12] MEDS: DONEPEZIL HCL PO SCH (17:18)
[2018-06-12] MEDS: METOPROLOL SUCCINATE 25 MG TAB.SR.24H PO SCH (17:18)
[2018-06-12] MEDS: MEMANTINE HCL PO SCH (17:18)
--- NOTE | 2018-06-12 17:18 | PDOC PROGRESS REPORT ---
Subjective Progress Note for:: 06/12/18 Subjective:: Ms. Royal is an 82 year old female with a PMH of advanced dementia, hypertension and dyslipidemia and prior episodes of syncope who was [facility] after she passed out and became unresponsive for 10 minutes. She was admitted for a syncope work-up. In the ER, patient was already back to baseline, was comfortable and was oriented only to self ( baseline from dementia). Assumed care today. No acute event overnight. Patient does have prior admissions for syncope and had recent EEG, MRI and CT which were unrevealing. She also had Holter monitoring which was reportedly normal. Upon discussion with daughter, she relays all her episodes were associated with low blood pressures in the 70 systolic or less. She says yesterday that patient was sitting when she passed out. She says that when EMS came, her blood pressure was low in the 70 systolic. She says in the past, her blood pressure medications were d/william and she was just put on Lopressor because of the previous episodes. Reason For Visit: SYNCOPE Physical Exam Vital Signs: Temp Pulse Resp BP Pulse Ox 98.4 F 64 16 171/68 H 94 06/12/18 10:18 06/12/18 16:38 06/12/18 16:38 06/12/18 10:18 06/12/18 16:38 Intake & Output 06/11/18 06/12/18 06/13/18 06:59 06:59 06:59 Intake Total 675 240 Balance 675 240 Weight 132 lb 11.492 oz General appearance: PRESENT: no acute distress, well-developed, well-nourished Head exam: PRESENT: atraumatic, normocephalic Eye exam: PRESENT: conjunctiva pink, EOMI, PERRLA. ABSENT: scleral icterus Ear exam: PRESENT: normal external ear exam Mouth exam: PRESENT: moist, tongue midline Neck exam: ABSENT: carotid bruit, JVD, lymphadenopathy, thyromegaly Respiratory exam: PRESENT: clear to auscultation maren. ABSENT: rales, rhonchi, wheezes Cardiovascular exam: PRESENT: RRR. ABSENT: diastolic murmur, rubs, systolic murmur Pulses: PRESENT: normal dorsalis pedis pul Vascular exam: PRESENT: normal capillary refill GI/Abdominal exam: PRESENT: normal bowel sounds, soft. ABSENT: distended, guarding, mass, organolmegaly, rebound, tenderness Rectal exam: PRESENT: deferred Neurological exam: PRESENT: alert, awake, oriented to person, CN II-XII grossly intact. ABSENT: motor sensory deficit Results Laboratory Results: 06/12/18 05:02 06/12/18 05:02 06/12/18 06/12/18 05:02 05:02 WBC 8.3 RBC 3.94 Hgb 12.8 Hct 36.9 MCV 94 MCH 32.5 MCHC 34.7 RDW 15.0 H Plt Count 159 Seg Neutrophils % 67.4 Lymphocytes % 19.4 Monocytes % 9.0 Eosinophils % 3.8 Basophils % 0.4 Absolute Neutrophils 5.6 Absolute Lymphocytes 1.6 Absolute Monocytes 0.7 Absolute Eosinophils 0.3 Absolute Basophils 0.0 Sodium 143.4 Potassium 4.1 Chloride 109 H Carbon Dioxide 26 Anion Gap 8 BUN 12 Creatinine 0.64 Est GFR ( Amer) > 60 Est GFR (Non-Af Amer) > 60 Glucose 80 Calcium 8.9 Total Bilirubin 0.7 AST 27 ALT 22 Alkaline Phosphatase 75 Total Protein 5.7 L Albumin 3.1 L 06/11/18 12:30 Troponin I < 0.012 Impressions: Chest X-Ray 06/11/18 09:40 IMPRESSION: NO ACUTE RADIOGRAPHIC FINDING IN THE CHEST. Assessment & Plan - Diagnosis (1) Syncope Qualifiers: Syncope type: unspecified Qualified Code(s): R55 - Syncope and collapse Is this a current diagnosis for this admission?: Yes Plan: Patient has had prior syncope before with previous work-up unrevealing. Upon discussion with daughter, she relays patient's syncopal episodes were associated with low blood pressures in the 70 systolic or less. She says yesterday that patient was sitting when she passed out. She says that when EMS came, her blood pressure was low in the 70 systolic. She says in the past, her blood pressure medications were d/william and she was just put on Lopressor because of the previous episodes. Patient has not had a carotid Doppler on record so will order one. Will also check orthostatic vital signs. Neurologic examination is normal aside from her being at her baseline orientation only to self. Her syncope can be from hypotension secondary to blood pressure fluctuations. Patient is on donepezil and memantine both of which can cause blood pressure fluctuations (hypotension-hypertension) especially in elderly patients. 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 Cabergoline usually decreases blood pressure but can also cause hypertension as well. Will hold off on these medications for now. Patient has advanced dementia. Discussed with daughter that memantine/donepezil will likely not give the patient any significant benefit. Heart rate is running the 60s. Blood pressures now in the 140/70s. Decrease Lopressor to 12.5 mg from 25 mg daily. If patient has recurrence of syncopal episodes despite being off these medications, she will likely need a tilt table study testing which can only be done outpatient. (2) Hypertension Qualifiers: Hypertension type: essential hypertension Qualified Code(s): I10 - Essential (primary) hypertension Is this a current diagnosis for this admission?: Yes Plan: Blood pressures in the 140/70s. Allow permissive hypertension for now due to recurrent syncope. Discussed this with patient's daughter and she does agree not to be aggressive with blood pressure control. Will allow patient to run in the 150-160s systolic for now. (3) Dementia Qualifiers: Dementia type: Alzheimer's disease Dementia behavioral disturbance: without behavioral disturbance Is this a current diagnosis for this admission?: Yes Plan: Patient is only oriented to person at baseline. Recommend holding off on memantine and donepezil and daughter is amenable to plan. - Time Time Spent with patient: 25-34 minutes
[2018-06-12] MEDS: ASPIRIN 81 MG TABLET, CHEWABLE PO SCH (17:25)
[2018-06-12] MEDS: CYANOCOBALAMIN (VITAMIN B-12) 1,000 MCG TABLET PO SCH (17:25)
[2018-06-12] MEDS ORDERED: METOPROLOL SUCCINATE 25 MG TAB.SR.24H PO SCH (18:00)
[2018-06-13] MEDS: QUETIAPINE FUMARATE 25 MG TABLET PO SCH (08:18)
[2018-06-13] MEDS: CALCIUM CARBONATE 250 MG/VITAMIN D3 125 UNIT TABLET PO SCH (08:18)
--- NOTE | 2018-06-13 08:42 | RADIOLOGY REPORT (SQ) ---
EXAM DESCRIPTION: CAROTID DOPPLER COMPLETED DATE/TIME: 06/12/2018 8:50 pm REASON FOR STUDY: syncope COMPARISON: None. TECHNIQUE: Grayscale ultrasound, Doppler velocity and spectra, and color Doppler images acquired of the extra-cranial carotid and vertebral arteries. Images stored on PACS. LIMITATIONS: None. FINDINGS: RIGHT CAROTID CCA Velocities: Within normal limits. ICA Velocities Peak systolic 0.52 m/s. End diastolic 0.12 m/s. Proximal ICA/CCA peak systolic ratio 1.1. Mild homogeneous plaque proximal ICA. LEFT CAROTID CCA Velocities: Within normal limits. ICA Velocities Peak systolic 0.59 m/s. End diastolic 0.11 m/s. Proximal ICA/CCA peak systolic ratio 1.1. Mild homogeneous plaque proximal ICA. VERTEBRAL ARTERIES: Antegrade flow. Normal waveforms. SUBCLAVIAN ARTERIES: Not imaged. OTHER: No other significant finding. IMPRESSION: NO HEMODYNAMICALLY SIGNIFICANT STENOSIS. COMMENT: Quality ID #[id number]: Velocity criteria are extrapolated from the diameter data as defined by t he Society of Radiologists in Ultrasound Consensus Conference. Radiology 2003: 229; 340-346. TECHNICAL DOCUMENTATION: JOB ID: [id number] [employer]- All Rights Reserved Reading location - IP/workstation name: [email or web address]
--- NOTE | 2018-06-13 09:06 | PDOC DISCHARGE SUMMARY ---
General - Admit/Disc Date/PCP Admission Date/Primary Care Provider: 06/11/18 12:00 JONATHAN HIGGINS MD Discharge Date: 06/13/18 - Discharge Diagnosis (1) Syncope Is this a current diagnosis for this admission?: Yes (2) Hypertension Is this a current diagnosis for this admission?: Yes (3) Dementia Is this a current diagnosis for this admission?: Yes - Additional Information Resuscitation Status: Full Code Prescriptions: Metoprolol Succinate [Toprol Xl 25 mg Tab.sr] 12.5 mg PO QPM #30 tab.sr.24h Home Medications: Aspirin [Aspirin 81 mg Chewable Tablet] 81 mg PO WSUPPER 01/09/18 Cabergoline [Cabergoline 0.5 mg Tablet] 0.5 mg PO TUFR@1000 01/09/18 Calcium Carbonate/Vitamin D3 [Calcium 600 + Vit D Tablet] 1 tab PO BID 01/09/18 Cyanocobalamin (Vitamin B-12) [Vitamin B-12] 2,000 mcg PO WSUPPER 01/09/18 Docusate Sodium [Colace 100 mg Capsule] 100 mg PO DAILY@1500 01/09/18 Ferrous Sulfate [Feosol 325 mg Tablet] 325 mg PO DAILY@1500 01/09/18 Quetiapine Fumarate [Seroquel] 50 mg PO BIDACBS 01/09/18 Metoprolol Succinate [Toprol Xl 25 mg Tab.sr] 12.5 mg PO QPM #30 tab.sr.24h 02/21 History of Present Illness History of Present Illness: Admitting hospitalist's H&P: SCARLETT CHAUDHARI is a 82 year old female past medical history of advanced dementia, hypertension and dyslipidemia. Patient was brought in from [facility] after she became unresponsive for 10 minutes. As per daughter who is her primary caregiver was reported to her by the [facility] does not she was doing fine and suddenly became unresponsive on was not responding to sternal rubs. No pulse, blood pressure or glucose were checked at the [facility]. It was reported that patient did not have any trauma due to the unresponsive episode. By the time EMS got to the [facility] patient had recovered she was brought to ED. Workup in ED was negative to explain the recent episode in the hospital was consulted for admission. Hospital Course Hospital Course: Ms. Chaudhari is an 82 year old female with a PMH of advanced dementia, hypertension and dyslipidemia and prior episodes of syncope who was brought in [facility] from a [facility] center after she passed out and became unresponsive for 10 minutes. She was admitted for a syncope work-up. In the ER, patient was already back to baseline, was comfortable and was oriented only to self ( baseline from dementia). Patient does have prior admissions for syncope and had recent EEG, MRI and CT which were unrevealing. She also had Holter monitoring which was reportedly normal. Upon discussion with daughter, she relays patient's syncopal episodes were associated with low blood pressures in the 70 systolic or less. She says yesterday that patient was sitting when she passed out. She says that when EMS came, her blood pressure was low in the 70 systolic. She says in the past, her blood pressure medications were d/william and she was just put on Lopressor because of the previous episodes. Memantine and Donepezil and cabregoline were held on admission. Carotid doppler was done and came back negative. Telemetry monitoring was also unremarkable. Orthostatic vital signs on the floor was negative for orthostasis. Neurologic examination is normal aside from her being at her baseline orientation only to self. Her syncope can be from hypotension secondary to blood pressure fluctuations. Patient is on donepezil and memantine both of which can cause blood pressure fluctuations (hypotension-hypertension) especially in elderly patients. She is apparently also on cabergoline for a history of prolactinoma (note though that recent MRI in November 2017 was negative for a pituitary adenoma). Cabergoline usually decreases blood pressure but can also cause hypertension as well. Patient has advanced dementia. Discussed with daughter that memantine/donepezil will likely not give the patient any significant benefit. She was amenable to plan of discontinuing memantine/donepezil but would rather discuss with their print cutter about the cabergoline. She did not have any recurrence of above symptoms since admission. Her heart rate was running in the 60s so Lopressor was decreased to 12.5 mg from 25 mg daily. If patient has recurrence of syncopal episodes despite being off these medications, she will likely need a tilt table study testing which can only be done outpatient. She will follow-up with Dr. Tovar later this week. Physical Exam Vital Signs: Temp Pulse Resp BP Pulse Ox 98.6 F 61 16 154/60 H 96 06/13/18 08:02 06/13/18 08:48 06/13/18 08:48 06/13/18 08:02 06/13/18 08:48 Intake & Output 06/12/18 06/13/18 06/14/18 06:59 06:59 06:59 Intake Total 675 624 Balance 675 624 Weight 132 lb 11.492 oz 134 lb 14.766 oz General appearance: PRESENT: no acute distress, well-developed, well-nourished Head exam: PRESENT: atraumatic, normocephalic Eye exam: PRESENT: conjunctiva pink, EOMI, PERRLA. ABSENT: scleral icterus Ear exam: PRESENT: normal external ear exam Mouth exam: PRESENT: moist, tongue midline Neck exam: ABSENT: carotid bruit, JVD, lymphadenopathy, thyromegaly Respiratory exam: PRESENT: clear to auscultation maren. ABSENT: rales, rhonchi, wheezes Cardiovascular exam: PRESENT: RRR. ABSENT: diastolic murmur, rubs, systolic murmur Pulses: PRESENT: normal dorsalis pedis pul GI/Abdominal exam: PRESENT: normal bowel sounds, soft. ABSENT: distended, guarding, mass, organolmegaly, rebound, tenderness Rectal exam: PRESENT: deferred Neurological exam: PRESENT: alert, awake, oriented to person, CN II-XII grossly intact. ABSENT: motor sensory deficit Results Laboratory Results: 06/12/18 05:02 06/12/18 05:02 06/11/18 12:30 Troponin I < 0.012 Impressions: Chest X-Ray 06/11/18 09:40 IMPRESSION: NO ACUTE RADIOGRAPHIC FINDING IN THE CHEST. Carotid Doppler Study 06/12/18 00:00 IMPRESSION: NO HEMODYNAMICALLY SIGNIFICANT STENOSIS. Qualifiers - * PATIENT BEING DISCHARGED WITH ANY OF THE FOLLOWING DIAGNOSIS: No
[2018-06-13] MEDS: ENOXAPARIN SODIUM INJ 40 MG/0.4 ML DISP.SYRIN SUBCUT SCH (09:36)
[2018-06-13 09:38] VITALS: BP 144/70
[2018-06-13] MEDS: GUAIFENESIN 600 MG TABLET.SA PO SCH (09:39)
[2018-06-13] MEDS: FAMOTIDINE 20 MG TABLET PO SCH (09:40)
--- NOTE | 2018-06-13 20:28 | PDOC PROGRESS REPORT ---
Subjective Progress Note for:: 06/13/18 Subjective:: Patient was seen on morning rounds. Seems to be doing better without any significant symptoms. Patient was given a follow-up appointment as she is being discharged. Reason For Visit: SYNCOPE Physical Exam Vital Signs: Temp Pulse Resp BP Pulse Ox 98.6 F 61 16 144/70 H 96 06/13/18 09:26 06/13/18 09:26 06/13/18 09:26 06/13/18 09:26 06/13/18 09:26 Intake & Output 06/12/18 06/13/18 06/14/18 06:59 06:59 06:59 Intake Total 675 624 Balance 675 624 Weight 60.2 kg 61.2 kg Exam: GENERAL: well-nourished and in no acute distress. Alert and oriented x2, HEAD: Atraumatic, normocephalic. EYES: REMBERTO, sclera anicteric, conjunctiva are normal. ENT: Moist mucous membranes. No oral ulcerations or bleeding gums noted. No obvious ear, nose or throat abnormalities noted. NECK: supple without lymphadenopathy. Trachea is central. No cervical or axillary lymphadenopathy noted. Carotids are 2+, JVD WNL LUNGS: Breath sounds clear bilaterally. No wheezes rales or rhonchi noted. No significant dullness noted on percussion. CHEST: Palpation of the chest wall shows no significant chest wall tenderness. 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 ABDOMEN: Soft, no significant tenderness appreciated, normoactive bowel sounds. No guarding, no rebound. No rigidity noted . No masses appreciated. EXTREMITIES: Pedal pulses are 1-2+, no calf tenderness noted. No clubbing or cyanosis. negative pedal edema noted NEUROLOGICAL: Focused neurological exam showed no significant neurologic deficit. Normal speech, no focal weakness appreciated. PSYCH: Normal mood, normal affect. Judgment and insight within normal limits. SKIN: No significant ecchymosis, skin is noted to be warm. MUSCULOSKELETAL EXAM: No significant acute joint swelling noted. Results Laboratory Results: 06/12/18 05:02 06/12/18 05:02 06/11/18 12:30 Troponin I < 0.012 EKG Comments: Telemetry shows sinus rhythm without any sustained tachycardia or bradycardia Impressions: Chest X-Ray 06/11/18 09:40 IMPRESSION: NO ACUTE RADIOGRAPHIC FINDING IN THE CHEST. Carotid Doppler Study 06/12/18 00:00 IMPRESSION: NO HEMODYNAMICALLY SIGNIFICANT STENOSIS. Assessment & Plan - Diagnosis (1) Syncope and collapse Is this a current diagnosis for this admission?: Yes (2) Hypertension Qualifiers: Hypertension type: essential hypertension Qualified Code(s): I10 - Essential (primary) hypertension Is this a current diagnosis for this admission?: Yes (3) Hypotension Qualifiers: Hypotension type: unspecified hypotension type Qualified Code(s): I95.9 - Hypotension, unspecified Is this a current diagnosis for this admission?: Yes (4) Dementia Qualifiers: Dementia type: unspecified type Dementia behavioral disturbance: without behavioral disturbance Qualified Code(s): F03.90 - Unspecified dementia without behavioral disturbance Is this a current diagnosis for this admission?: Yes - Notes Notes: Recurrent syncope: These are felt to be vasovagal by history. At this point further assessment can be completed as an outpatient. Did recommend that Aricept be stopped but continue with Namenda. Patient will benefit from not sitting still. Patient will also benefit from support stockings. Hypertension: Would recommend liberal blood pressure goal. Would not treat blood pressure unless systolic consistently above 160. Beta-blockers such as Inderal and clonidine may be preferred agent. Dementia: Continue current therapeutic regimen but recommend stopping Aricept. Hypotension: Most likely related to vasovagal syncope. - Time Time with patient: Greater than 35 minutes - CODE STATUS was discussed, patient remains full code. Surrogate decision-maker patient's daughter. Multiple medical problems were addressed. More than 50% of the time spent coordinating care, discussing management plans with involved caregivers. Management plans discussed with involved personnels. Medical decision making was of moderate to high complexity, patient's has multiple comorbidities. Medications reviewed and adjusted accordingly: Yes
--- NOTE | 2018-06-13 20:32 | PDOC CONSULTATION ---
Consultation Consult Date: 06/12/18 Attending physician:: PIYUSH COLORADO Consult reason:: syncope History of Present Illness Admission Date/PCP: 06/11/18 12:00 JONATHAN HIGGINS MD Patient complains of: syncope History of Present Illness: SCARLETT CHAUDHARI is a 82 year old female with a PMH of advanced dementia, hypertension and dyslipidemia and prior episodes of syncope who was brought in initially from a senior center after she passed out and became unresponsive for 10 minutes. She was admitted for a syncope work-up. In the ER, patient was already back to baseline, was comfortable and was oriented only to self ( baseline from dementia). Assumed care today. No acute event overnight. Patient does have prior admissions for syncope and had recent EEG, MRI and CT which were unrevealing. She also had Holter monitoring which was reportedly normal. Upon discussion with daughter, she relays all her episodes were associated with low blood pressures in the 70 systolic or less. She says yesterday that patient was sitting when she passed out. She says that when EMS came, her blood pressure was low in the 70 systolic. She says in the past, her blood pressure medications were d/william and she was just put on Lopressor because of the previous episodes. It seems most of patient's episodes happened while she was in chair, sitting still for a while. No episodes noted while in bed. Past Medical History Cardiac Medical History: Reports: Hyperlipidema, Hypertension Denies: Congestive Heart Failure, Myocardial Infarction Pulmonary Medical History: Denies: Asthma, Bronchitis, Chronic Obstructive Pulmonary Disease (COPD), Pneumonia, Tuberculosis Neurological Medical History: Denies: Seizures Endocrine Medical History: Reports: Diabetes Mellitus Type 2 Renal/ Medical History: Denies: End Stage Renal Disease GI Medical History: Denies: Cirrhosis, Gastroesophageal Reflux Disease Musculoskeltal Medical History: Reports: Arthritis - osteo Psychiatric Medical History: Reports: Dementia Denies: Bipolar Disorder, Depression Hematology: Denies: Bleeding Tendencies Past Surgical History Past Surgical History: Reports: Cholecystectomy Social History Information Source: Patient Smoking Status: Never Smoker Frequency of Alcohol Use: None Hx Recreational Drug Use: No Drugs: None Hx Prescription Drug Abuse: No - Advance Directive Resuscitation Status: Full Code Surrogate healthcare decision maker:: Patient daughter Pili Helton Family History Family History: DM, Hypertension Parental Family History Reviewed: Yes Children Family History Reviewed: Yes Sibling(s) Family History Reviewed.: Yes Medication/Allergy Home Medications: Aspirin [Aspirin 81 mg Chewable Tablet] 81 mg PO WSUPPER 01/09/18 Cabergoline [Cabergoline 0.5 mg Tablet] 0.5 mg PO TUFR@1000 01/09/18 Calcium Carbonate/Vitamin D3 [Calcium 600 + Vit D Tablet] 1 tab PO BID 01/09/18 Cyanocobalamin (Vitamin B-12) [Vitamin B-12] 2,000 mcg PO WSUPPER 01/09/18 Docusate Sodium [Colace 100 mg Capsule] 100 mg PO DAILY@1500 01/09/18 Ferrous Sulfate [Feosol 325 mg Tablet] 325 mg PO DAILY@1500 01/09/18 Quetiapine Fumarate [Seroquel] 50 mg PO BIDACBS 01/09/18 Metoprolol Succinate [Toprol Xl 25 mg Tab.sr] 12.5 mg PO QPM #30 tab.sr.24h 02/21 Allergies/Adverse Reactions: TOBIN Inhibitors Allergy (Verified 06/11/18 12:51) Review of Systems ROS unobtainable: Due to mental status Physical Exam Vital Signs: Temp Pulse Resp BP Pulse Ox 98.6 F 70 14 166/67 H 95 06/12/18 18:46 06/12/18 18:46 06/12/18 18:46 06/12/18 18:46 06/12/18 18:46 Intake & Output 06/11/18 06/12/18 06/13/18 06:59 06:59 06:59 Intake Total 675 240 Balance 675 240 Weight 60.2 kg Exam: GENERAL: well-nourished and in no acute distress. Patient is alert, oriented x2. HEAD: Atraumatic, normocephalic. EYES: Pupils equal round and reactive to light, extraocular movements intact, sclera anicteric, conjunctiva are normal. ENT: TMs normal, nares patent, oropharynx clear without exudates. Moist mucous membranes. No oral ulcerations or bleeding gums noted NECK: supple without lymphadenopathy or JVD. Trachea is central. No cervical or axillary lymphadenopathy noted. Carotids are 2+ LUNGS: Breath sounds bibasilar fine crackles at bases. No significant dullness noted. CHEST: Palpation of chest wall shows no significant chest wall tenderness. 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 ABDOMEN: Soft, no significant tenderness appreciated, normoactive bowel sounds. No guarding, no rebound. No rigidity noted . No masses appreciated. EXTREMITIES: Pedal pulses are 1-2+, no calf tenderness noted, Trace + pedal edema noted. No clubbing or cyanosis. NEUROLOGICAL: Patient is alert, no definite focal neurological deficit noted. PSYCH: Mental status, judgment and insight not checked. SKIN: No significant ecchymosis, rash, ulcerations or signs of pruritus noted. MUSCULOSKELETAL EXAM: No significant joint swelling noted. Results Laboratory Results: 06/12/18 05:02 06/12/18 05:02 06/12/18 06/12/18 05:02 05:02 WBC 8.3 RBC 3.94 Hgb 12.8 Hct 36.9 MCV 94 MCH 32.5 MCHC 34.7 RDW 15.0 H Plt Count 159 Seg Neutrophils % 67.4 Lymphocytes % 19.4 Monocytes % 9.0 Eosinophils % 3.8 Basophils % 0.4 Absolute Neutrophils 5.6 Absolute Lymphocytes 1.6 Absolute Monocytes 0.7 Absolute Eosinophils 0.3 Absolute Basophils 0.0 Sodium 143.4 Potassium 4.1 Chloride 109 H Carbon Dioxide 26 Anion Gap 8 BUN 12 Creatinine 0.64 Est GFR ( Amer) > 60 Est GFR (Non-Af Amer) > 60 Glucose 80 Calcium 8.9 Total Bilirubin 0.7 AST 27 ALT 22 Alkaline Phosphatase 75 Total Protein 5.7 L Albumin 3.1 L 06/11/18 12:30 Troponin I < 0.012 EKG Comments: Sinus rhythm, no acute ST-T wave changes are noted. Impressions: Chest X-Ray 06/11/18 09:40 IMPRESSION: NO ACUTE RADIOGRAPHIC FINDING IN THE CHEST. Assessment & Plan - Diagnosis (1) Syncope and collapse Is this a current diagnosis for this admission?: Yes (2) Dementia Qualifiers: Dementia type: unspecified type Dementia behavioral disturbance: without behavioral disturbance Qualified Code(s): F03.90 - Unspecified dementia without behavioral disturbance Is this a current diagnosis for this admission?: Yes (3) Hypertension Qualifiers: Hypertension type: essential hypertension Qualified Code(s): I10 - Essential (primary) hypertension Is this a current diagnosis for this admission?: Yes (4) Hypotension Qualifiers: Hypotension type: unspecified hypotension type Qualified Code(s): I95.9 - Hypotension, unspecified Is this a current diagnosis for this admission?: Yes - Notes Notes: Recurrent syncope: These are felt to be vasovagal by history. At this point further assessment can be completed as an outpatient. Did recommend that Aricept be stopped but continue with Namenda. Patient will benefit from not sitting still. Patient will also benefit from support stockings. Also recommend orthostatic blood pressure readings. Hypertension: Would recommend liberal blood pressure goal. Would not treat blood pressure unless systolic consistently above 160. Beta-blockers such as Inderal and clonidine may be preferred agent. Dementia: Continue current therapeutic regimen but recommend stopping Aricept. Hypotension: Most likely related to vasovagal syncope. Recommend avoiding vasodilators, standing or sitting still for prolonged., And avoiding dehydration, avoiding diuretic therapy. - Time Time Spent: 30 to 50 Minutes - CODE STATUS was discussed, patient remains full code. Surrogate decision-maker unchanged. Multiple medical problems were addressed. More than 50% of the time spent coordinating care, discussing management plans with involved caregivers. Management plans discussed with involved personnels. Medical decision making was of moderate to high complexity , patient's has multiple comorbidities. Medications reviewed and adjusted accordingly: Yes
== END 2018-06-13 10:57 | disposition home or self-care (01) ==
LOC: ER 09:04 → EH 12:00 → INTOOBSV 12:00 → 5 13:10
PROVIDERS: ADMIT Emergency Medicine; ATTEND Emergency Medicine
DX: R55 Syncope and collapse (principal); I10 Essential (primary) hypertension; G30.9 Alzheimer's disease, unspecified; F02.80 Dementia in other diseases classified elsewhere, unspecified severity, without behavioral disturbance, psychotic disturbance, mood disturbance, and anxiety; I95.9 Hypotension, unspecified; Z79.899 Other long term (current) drug therapy; Z79.82 Long term (current) use of aspirin; Z86.011 Personal history of benign neoplasm of the brain; Z90.49 Acquired absence of other specified parts of digestive tract; Z82.49 Family history of ischemic heart disease and other diseases of the circulatory system
CPT/HCPCS: 93005; 99285; 96360; 51701; 36415 ×2; 82553; 82962 ×2; 83690; 85025 ×2; 80053 ×2; 81001; 84484; 83880; 93880; 71045; 93010; G0378 ×3; A9270 ×14; J1650; J3490 ×3; J7030

== ENCOUNTER 2018-07-06 11:33 | Emergency (ER) | payer MEDICARE, OTHER, MEDICAID ==
--- NOTE | 2018-07-06 12:13 | ER Document Report ---
ED General - General Chief Complaint: Syncope Stated Complaint: POSSIBLE SYNCOPE Time Seen by Provider: 07/06/18 11:46 Notes: Patient is a 82-year-old female that presents to the emergency department for chief complaint of syncopal episode. Patient has dementia, and most of the history is being provided by the patient's daughter is at bedside. She reports that the patient was that the [facility], and apparently had a syncopal episode, where she slouched over, did not hit her head, or have any head injury , she was apparently difficult to arouse for approximately 5 minutes. She does have advanced dementia, she is had about 4 other episodes like this over the course of this year, one was recent. She has worn a Holter monitor, and had a cardiac evaluation, to look into the causes of this, but they are unable to be identified, in the past she has been hypotensive, they have reduced her blood pressure medications. The patient at this time does not have any complaints, denies having any pain, nausea, vomiting. The daughter is unaware of any recent infections, or complaints otherwise from the patient. Past Medical History: Dementia, hypertension Past Surgical History: Reviewed and not pertinent to presentation Social History: Lives at home with her daughter, no tobacco or alcohol use Family History: Reviewed and noncontributory for presenting illness Allergies: Reviewed, see documented allergy list. REVIEW OF SYSTEMS: Other than noted above, the 12 point review of systems was reviewed with the patient and were negative, all pertinent findings are included in the HPI. PHYSICAL EXAMINATION: Vital signs reviewed, nursing noted reviewed. GENERAL: Elderly female, no acute distress HEAD: Atraumatic, normocephalic. EYES: Eyes appear normal, extraocular movements intact, sclera anicteric, conjunctiva are normal. PERRLA ENT: nares patent, oropharynx clear without exudates. Moist mucous membranes. NECK: Normal range of motion, supple without lymphadenopathy LUNGS: Breath sounds clear to auscultation bilaterally and equal. No wheezes rales or rhonchi. HEART: Regular rate and rhythm without murmurs ABDOMEN: Soft, nontender, normoactive bowel sounds. No rebound, guarding, or rigidity. No masses appreciated. EXTREMITIES: Nontender, good range of motion, no pitting or edema. NEUROLOGICAL: Alert and oriented to self only at this time which apparently is her baseline, no focal neurological deficits. Moves all extremities spontaneously Motor and sensory grossly intact on exam. PSYCH: Normal mood, normal affect. SKIN: Warm, Dry, normal turgor, no rashes or lesions noted on exposed skin TRAVEL OUTSIDE OF THE [place] IN LAST 30 DAYS: No - Related Data Allergies/Adverse Reactions: TOBIN Inhibitors Allergy (Verified 06/11/18 12:51) Past Medical History - Social History Smoking Status: Never Smoker Family History: DM, Hypertension Patient has suicidal ideation: No Patient has homicidal ideation: No - Past Medical History Cardiac Medical History: Reports: Hx Hypercholesterolemia, Hx Hypertension Denies: Hx Congestive Heart Failure, Hx Heart Attack Pulmonary Medical History: Denies: Hx Asthma, Hx Bronchitis, Hx COPD, Hx Pneumonia, Hx Tuberculosis Neurological Medical History: Denies: Hx Seizures Endocrine Medical History: Reports: Hx Diabetes Mellitus Type 2 Renal/ Medical History: Denies: Hx End Stage Renal Disease, Hx Kidney Stones, Hx Peritoneal Dialysis GI Medical History: Denies: Hx Cirrhosis, Hx Gastroesophageal Reflux Disease, Hx Ulcer Musculoskeletal Medical History: Reports Hx Arthritis - osteo, Denies Hx Multiple Sclerosis Psychiatric Medical History: Reports: Hx Dementia Denies: Hx Bipolar Disorder, Hx Depression, Hx Schizophrenia Past Surgical History: Reports: Hx Cholecystectomy, Hx Gynecologic Surgery - uterine sling - Immunizations Hx Diphtheria, Pertussis, Tetanus Vaccination: Yes Hx Pneumococcal Vaccination: 08/07/14 Course - Re-evaluation Re-evalutation: Patient seen and examined vital signs reviewed. Laboratory data and imaging were ordered as appropriate for the patient's presenting symptoms and complaint, with consideration of any critical or life threatening conditions that may be associated with their obtained history and exam as noted above. Results were reviewed when available and demonstrated unremarkable blood work, EKG unchanged from prior, chest x-ray negative, UA obtained, and negative for signs of UTI. 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 Results were discussed with the patient and the patient's daughter at this point , after careful consideration I feel that that patient can be discharged from the emergency department, the patient and the patient's daughter was educated treatments and reasons to return to the emergency department based on their presumed diagnosis as noted above, they were advised to followup with a primary care physician in 2-3 days. Patient and the patient's daughter was agreeable to plan of care. *Note is created using voice recognition software and may contain spelling, syntax or grammatical errors. Laboratory 07/06/18 07/06/18 07/06/18 12:02 12:02 12:02 WBC 7.4 RBC 4.27 Hgb 14.1 Hct 41.0 MCV 96 MCH 33.0 MCHC 34.3 RDW 13.9 Plt Count 83 L Seg Neutrophils % 69.4 Lymphocytes % 20.7 Monocytes % 6.8 Eosinophils % 2.6 Basophils % 0.5 Absolute Neutrophils 5.1 Absolute Lymphocytes 1.5 Absolute Monocytes 0.5 Absolute Eosinophils 0.2 Absolute Basophils 0.0 Sodium 142.4 Potassium 4.1 Chloride 103 Carbon Dioxide 30 Anion Gap 9 BUN 11 Creatinine 0.71 Est GFR ( Amer) > 60 Est GFR (Non-Af Amer) > 60 Glucose 91 Calcium 9.3 Total Bilirubin 0.6 Direct Bilirubin 0.2 Neonat Total Bilirubin Not Reportable Neonat Direct Bilirubin Not Reportable Neonat Indirect Bili Not Reportable AST 21 ALT 21 Alkaline Phosphatase 70 Creatine Kinase < 20 L CK-MB (CK-2) 0.52 Troponin I < 0.012 Total Protein 6.4 Albumin 3.6 Chest X-Ray 07/06/18 12:40 IMPRESSION: NO ACUTE RADIOGRAPHIC FINDING IN THE CHEST. - Laboratory Result Diagrams: 07/06/18 12:02 07/06/18 12:02 Laboratory results interpreted by me: 07/06/18 07/06/18 12:02 12:02 Plt Count 83 L Creatine Kinase < 20 L - EKG Interpretation by Me Additional EKG results interpreted by me: EKG demonstrates sinus rhythm with a ventricular rate of 64 bpm, left axis deviation, QTC 491 ms, there is no evidence of acute ischemia on this EKG, this is compared with prior EKG from 06/11/2018, without significant change. Discharge - Discharge Clinical Impression: Syncope Qualifiers: Syncope type: unspecified Qualified Code(s): R55 - Syncope and collapse Condition: Stable Disposition: HOME, SELF-CARE Instructions: Syncopal Episode ([facility]) Additional Instructions: Please follow-up with cardiology, monitor for repeat symptoms, and do not hesitate to return to the emergency department, if she continues to have these episodes. Referrals: JONATHAN HIGGINS MD [Primary Care Provider] - Follow up in 3-5 days GORDON BRIGHT MD [ACTIVE STAFF] - Follow up in 3-5 days (call for appointment on monday. )
[2018-07-06 12:36] LABS: ABSOLUTE EOSINOPHILS # (AUTO) 0.2 10^3/uL (0.0-0.6); ABSOLUTE LYMPHOCYTES (AUTO) 1.5 10^3/uL (0.5-4.7); ABSOLUTE MONOCYTES (AUTO) 0.5 10^3/uL (0.1-1.4); ABSOLUTE NEUT (AUTO) 5.1 10^3/uL (1.7-8.2); BASOPHILS % (AUTO) 0.5 % (0-2); EOSINOPHILS % (AUTO) 2.6 % (0-6); HEMOGLOBIN 14.1 g/dL (12.0-15.5); LYMPHOCYTES % (AUTO) 20.7 % (13-45); MEAN CORPUSCULAR HGB CONC 34.3 g/dL (32.0-36.0); MEAN CORPUSCULAR VOLUME 96 fl (80-97); MONOCYTES % (AUTO) 6.8 % (3-13); RED BLOOD COUNT 4.27 10^6/uL (3.72-5.28); RED CELL DISTRIBUTION WIDTH 13.9 % (11.5-14.0); SEGMENTED NEUTROPHILS % (AUTO) 69.4 % (42-78); TOTAL CELLS COUNTED % (AUTO) 100 %; WHITE BLOOD COUNT 7.4 10^3/uL (4.0-10.5)
[2018-07-06 12:42] LABS: ALANINE AMINOTRANSFERASE 21 U/L (9-52); ALBUMIN 3.6 g/dL (3.5-5.0); ALKALINE PHOSPHATASE 70 U/L (38-126); ANION GAP 9 (5-19); ASPARTATE AMINO TRANSFERASE 21 U/L (14-36); BILIRUBIN,DIRECT 0.2 mg/dL (0.0-0.4); BILIRUBIN,TOTAL 0.6 mg/dL (0.2-1.3); BLOOD UREA NITROGEN 11 mg/dL (7-20); CALCIUM 9.3 mg/dL (8.4-10.2); CARBON DIOXIDE 30 mmol/L (22-30); CHLORIDE 103 mmol/L (98-107); GLUCOSE 91 mg/dL (75-110); POTASSIUM 4.1 mmol/L (3.6-5.0); SODIUM 142.4 mmol/L (137-145); TOTAL PROTEIN 6.4 g/dL (6.3-8.2)
[2018-07-06 12:45] LABS: CREATINE KINASE < 20 U/L (30-135)
[2018-07-06 12:53] LABS: CREATINE KINASE MB 0.52 ng/mL (<4.55)
[2018-07-06 13:06] LABS: TROPONIN I < 0.012 ng/mL
--- NOTE | 2018-07-06 13:16 | RADIOLOGY REPORT (SQ) ---
EXAM DESCRIPTION: CHEST SINGLE VIEW COMPLETED DATE/TIME: 07/06/2018 1:07 pm REASON FOR STUDY: syncope COMPARISON: 06/11/2018 EXAM PARAMETERS: NUMBER OF VIEWS: One view. TECHNIQUE: Single frontal radiographic view of the chest acquired. RADIATION DOSE: NA LIMITATIONS: Low lung volumes. FINDINGS: LUNGS AND PLEURA: No opacities, masses or pneumothorax. No pleural effusion. MEDIASTINUM AND HILAR STRUCTURES: No masses. Contour normal. HEART AND VASCULAR STRUCTURES: Heart normal in size. Normal vasculature. BONES: No acute findings. HARDWARE: None in the chest. OTHER: No other significant finding. IMPRESSION: NO ACUTE RADIOGRAPHIC FINDING IN THE CHEST. TECHNICAL DOCUMENTATION: JOB ID: [id number] [employer]- All Rights Reserved Reading location - IP/workstation name: [email or web address]
[2018-07-06 13:24] LABS: PLATELET COUNT 83 10^3/uL (150-450)
--- NOTE | 2018-07-06 13:32 | EKG REPORT ---
SEVERITY:- ABNORMAL ECG - SINUS RHYTHM NONSPECIFIC INTRAVENTRICULAR CONDUCTION DELAY : Confirmed by: Derek Ewing MD 06-Jul-2018 13:32:08
[2018-07-06 15:04] LABS: AMORPHOUS SEDIMENT,URINE TRACE /HPF; APPEARANCE,URINE CLOUDY; BILIRUBIN,URINE NEGATIVE (NEGATIVE); COLOR,URINE YELLOW; GLUCOSE, URINE NEGATIVE (NEGATIVE); KETONES,URINE NEGATIVE (NEGATIVE); LEUKOCYTE ESTERASE,URINE NEGATIVE (NEGATIVE); NITRITE,URINE NEGATIVE (NEGATIVE); PROTEIN,URINE NEGATIVE (NEGATIVE); URINE SPECIFIC GRAVITY 1.006; UROBILINOGEN,URINE NEGATIVE mg/dL (<2.0)
[2018-07-06 15:38] VITALS: BP 146/61
== END 2018-07-06 15:38 | disposition home or self-care (01) ==
LOC: ER 11:33
DX: R55 Syncope and collapse (principal); I10 Essential (primary) hypertension; F03.90 Unspecified dementia, unspecified severity, without behavioral disturbance, psychotic disturbance, mood disturbance, and anxiety; E78.00 Pure hypercholesterolemia, unspecified; E11.9 Type 2 diabetes mellitus without complications; Z90.49 Acquired absence of other specified parts of digestive tract
CPT/HCPCS: 36415; 71045; 80053; 81001; 82550; 82553; 84484; 85025; 93005; 93010; 99284

== ENCOUNTER → 2018-07-30 | Outpatient (CLI) | payer MEDICARE, OTHER, MEDICAID ==
--- NOTE | 2018-07-30 13:33 | RADIOLOGY REPORT (SQ) ---
EXAM DESCRIPTION: HIP LEFT AP/LATERAL COMPLETED DATE/TIME: 07/30/2018 1:16 pm REASON FOR STUDY: M25.552 PAIN IN LEFT HIP M25.552 PAIN IN LEFT HIP COMPARISON: None. NUMBER OF VIEWS: Three views TECHNIQUE: AP pelvis, surgical lateral left hip and additional frog-leg view of the left hip. LIMITATIONS: None. FINDINGS: MINERALIZATION: Osteoporotic LEFT HIP: No fracture or dislocation. No worrisome bone lesions. RIGHT HIP: No fracture or dislocation. No worrisome bone lesions. PUBIS AND ISCHIUM: No fracture. PELVIS: No fracture. SACRUM: No fracture or dislocation. No worrisome bone lesions. LOWER LUMBAR SPINE: Bulky bilateral facet arthropathy at L3-4 L4-5 and L5-S1. SOFT TISSUES: No findings. OTHER: No other significant finding. IMPRESSION: NEGATIVE STUDY OF THE LEFT HIP AND PELVIS. NO RADIOGRAPHIC EVIDENCE OF ACUTE INJURY. TECHNICAL DOCUMENTATION: JOB ID: [id number] [employer]- All Rights Reserved Reading location - IP/workstation name: [email or web address]
== END ==
LOC: RAD 12:59
PROVIDERS: ATTEND Nurse Practitioner Acute Care
DX: M25.552 Pain in left hip (principal)

== ENCOUNTER → 2018-09-13 | Outpatient (CLI) | payer MEDICARE, MEDICAID ==
--- NOTE | 2018-09-13 14:03 | WOMENS IMAGING REPORT ---
EXAM DESCRIPTION: BONE DENSITY HIP/SPINE COMPLETED DATE/TIME: 09/13/2018 1:55 pm REASON FOR STUDY: M81.0 AGE-RELATED OSTEOPOROSIS WITHOUT CURRENT PATHOLOGICAL FRACTURE M81.0 AGE-RE LATED OSTEOPOROSIS W/O CURRENT PATHOLOGICAL FRAC COMPARISON: None. TECHNIQUE: Dual-Energy X-ray Absorptiometry (DEXA) of the AP Spine and Hip. LIMITATIONS: None. FINDINGS: LUMBAR SPINE: The bone mineral density (BMD) measured from L1-L4 in the AP projection correlates with a T-score of 0.3, which is normal as defined by the World Health Organization. HIP: The bone mineral density (BMD) measured in the left hip correlates with a T-score of -2.6, which is o steoporosis as defined by the World Health Organization. Minimal change from previous. IMPRESSION: 1. LUMBAR SPINE: NORMAL. 2. HIP: OSTEOPOROSIS. COMMENT: The World Health Organization defines low BMD as follows: T-score: Normal: Greater than -1.0 Osteopenia: Between -1.0 and -2.5 Osteoporosis: Less than -2.5 without fractures Established osteoporosis: Less than -2.5 with fractures In general, you may wish to consider: Diagnosis Treatment Follow-up DEXA Normal BMD Prevention 2-3 years Osteopenia Prevention/Therapy 1-2 years Osteoporosis Therapy Yearly TECHNICAL DOCUMENTATION: JOB ID: [id number]- All Rights Reserved Reading location - IP/workstation name: [email or web address]
== END ==
LOC: WI 13:29
PROVIDERS: ATTEND Family Medicine
DX: M81.0 Age-related osteoporosis without current pathological fracture (principal)
CPT/HCPCS: 77080

== ENCOUNTER → 2019-03-29 | Outpatient (CLI) | payer MEDICARE, MEDICAID ==
--- NOTE | 2019-03-29 15:35 | WOMENS IMAGING REPORT ---
EXAM DESCRIPTION: BILAT SCREENING MAMMO W/CAD COMPLETED DATE/TIME: 03/29/2019 1:09 pm REASON FOR STUDY: Z12.31 SCREENING MAMMO Z12.31 ENCNTR SCREEN MAMMOGRAM FOR MALIGNANT NEOPLASM OF B RE COMPARISON: 2018, [facility] internal medicine EXAM PARAMETERS: Standard craniocaudal and mediolateral oblique views of each breast recorded using digital acquisition. Read with the assistance of CAD. .[facility] - [place] [employer] Machine Operator Version 9.2 LIMITATIONS: None. FINDINGS: Findings present which are benign by mammographic criteria. No suspicious masses, calcifi cations or architectural distortion. Pertinent benign findings: Benign bilateral breast parenchymal calcifications. Arterial vascular ramón cifications. Benign mammographic findings may include one or more of the following: Smooth masses, popcorn/rim/co arse calcifications, asymmetries, post-procedure changes, and lesions with long-standing stability. IMPRESSION: BENIGN MAMMOGRAPHIC FINDINGS. BIRADS 2 BREAST DENSITY: a. The breasts are almost entirely fatty. BIRAD: ASSESSMENT: 2 BENIGN FINDING(S) RECOMMENDATION: ROUTINE SCREENING COMMENT: The patient has been notified of the results by letter per [place] requirements. Additional no tification policies are in place for contacting patient with suspicious or incomplete findings. Quality ID #[id number]: The [employer] recommends an annual screening mammogram for women aged 40 years or over. This facility utilizes a reminder system to ensure that all patients receive reminder letters, and/or direct phone calls for appointments. This includes reminders for routine scr eening mammograms, diagnostic mammograms, or other Breast Imaging Interventions when appropriate. Th is patient will be placed in the appropriate reminder system. TECHNICAL DOCUMENTATION: FINDING NUMBER: (1) ASSESSMENT: (1) JOB ID: [id number] [employer]- All Rights Reserved Reading location - IP/workstation name: [email or web address]
== END ==
LOC: WI 13:40
PROVIDERS: ATTEND Internal Medicine
DX: Z12.31 Encounter for screening mammogram for malignant neoplasm of breast (principal)
CPT/HCPCS: 77067